=== PATIENT | female | born 2005 | race Caucasian/White ===

== ENCOUNTER 2023-11-02 05:07 | Observation (INO) ==
[2023-11-02 06:16] LABS: Appearance Urine Cloudy (Clear); Bacteria Urine Automated 1+ (Negative); Bilirubin Urine Negative (Negative); Blood Urine 2+ (Negative); Color Urine Dark Yellow; Epithelial Cell Urine Auto >30 /lpf (0-5); Glucose Urine UA Negative (Negative); Ketones Urine Trace (Negative); Leukocyte Esterase Urine 1+ (Negative); Nitrite Urine Negative (Negative); Protein Urine Trace (Negative); RBC Urine Automated 0-4 /hpf (0-4); Specific Gravity Urine 1.022 (1.000-1.030); Urobilinogen Urine Negative (Negative); WBC Urine Automated >30 /hpf (0-5)
[2023-11-02 06:20] LABS: Basophils # (auto) 0.07 K/uL (0.00-0.20); Basophils % (auto) 0.5 %; Eosinophils # (auto) 0.04 K/uL (0.00-0.50); Eosinophils % (auto) 0.3 %; Hematocrit (blood only) 36.7 % (37.0-47.0); Hemoglobin 11.7 g/dl (12.0-16.0); Immature Granulocytes # (auto) 0.07 K/uL (0.01-0.20); Immature Granulocytes % (auto) 0.5 %; Lymphocytes # (auto) 1.45 K/uL (1.20-3.40); Lymphocytes % (auto) 9.3 %; Mean Corpuscular Hemoglobin 27.9 pg (25.0-34.0); Mean Corpuscular Hgb Conc 31.9 g/dL (32.0-36.0); Mean Corpuscular Volume 87.4 fL (80.0-100.0); Monocytes # (auto) 1.01 K/uL (0.11-0.59); Monocytes % (auto) 6.5 %; Neutrophils # (auto) 12.89 K/uL (1.40-6.50); Neutrophils % (auto) 82.9 %; Platelet Count 387 K/uL (130-400); RDW Coefficient of Variation 14.4 % (11.5-14.5); White Blood Count 15.53 K/ul (4.8-10.8)
[2023-11-02 06:35] LABS: Albumin Globulin Ratio 1.3 (0.9-2); Albumin Level 4.3 gm/dl (3.4-5.0); Bilirubin,Total 0.7 mg/dl (0.2-1.0); Calcium 9.4 mg/dl (8.6-10.3); Creatinine Clr Calc Pharmacy 121.5 ml/min; Est GFR (African American) 147.7 ml/min; Est GFR (Non-African American) 127.4 ml/min; Globulin 3.4 gm/dl (2.5-4.0); Potassium 3.3 mmol/L (3.5-5.1); Total Protein 7.7 gm/dl (6.0-8.3)
--- NOTE | 2023-11-02 06:42 | Emergency Department Note ---
Impression & Plan Left pyosalpinx, UTI (urinary tract infection) The patient will be admitted to the [facility]END[facility] service ED Provider Note NAME: LEXIE HO AGE: 17 SEX: Female INFORMANT: Patient ED PROVIDER(S): Jahaira Oneill DO CHIEF COMPLAINT: Abdominal pain PLAN: Disposition: Admit to the [facility] ATTENDANT service MEDICAL DECISION MAKING: This is a 17-year-old female patient presents to the emergency department with suprapubic and left lower quadrant abdominal pain. Patient has been told in the past that she has inflammation to her left fallopian tube and is concerned there may be an issue with it now. Patient has had a previous right-sided ectopic with removal of the right fallopian tube. Patient continues to have unprotected sex although urine test is negative at this time. She went for pelvic ultrasound which shows evidence of hydrosalpinx versus pyosalpinx. On pelvic exam, the patient has exquisite/severe cervical motion tenderness and left adnexal tenderness. Cultures were obtained of some thick yellow/brown vaginal discharge. Patient was given a dose of IV Unasyn after blood cultures were obtained. Laboratory studies reveal significant leukocytosis with a white blood cell count of 15.5. She is afebrile at this time. Urinalysis reveals 2+ blood, 1+ leukocyte esterase and greater than 30 white blood cells. I have discussed the case with Dr. 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 Vital Signs: reviewed and remarkable for tachycardia Additional History obtained from: Mother is at the bedside Chronic Medical/Social Conditions affecting care: None Prior/ Outside/ External records reviewed: Multiple previous records from the [facility] system including operative note from her ectopic 02/09/2023. Differential Diagnosis: Cystitis, pyelonephritis, tubo-ovarian abscess, ovarian torsion, ovarian cyst rupture, ectopic , pelvic abscess Diagnostics, independently interpreted by me: Imaging studies: Pelvic ultrasound: As per radiologist report HPI: 17 year old Female arrives for evaluation of abdominal pain. Patient developed worsening suprapubic and left lower quadrant abdominal pain throughout the day yesterday and into last evening. She was unable to sleep because of the pain. Patient has a history of a right-sided ectopic with removal of the tube and had subsequent visits to [place] emergency department where she was told that she had inflammation of the left fallopian tube. She is scheduled for pelvic MRI on 11/17/2023 to evaluate the remaining fallopian tube, ovaries and uterus. This follow-up is scheduled in [place] with gynecology PAST MEDICAL HISTORY: Ruptured ectopic , PAST SURGICAL HISTORY: Removal of the right fallopian tube status post ectopic , SOCIAL HISTORY: See Below, HOME MEDICATIONS: See list ALLERGIES: See list VITALS: See Below PHYSICAL EXAMINATION: HEENT: Head - normocephalic and atraumatic. Pupils are equal, round, and reactive to light. Extraocular eye muscles are intact, and sclera are anicteric. Nose - moist nasal mucosa without discharge. Mouth - moist buccal mucosa. Oropharynx is nonerythematous and there is no tonsillar exudate or edema noted. Neck: Supple; no cervical lymphadenopathy or nuchal rigidity. Heart: Regular rate and rhythm. There is a normal S1 and S2 with no murmurs, clicks, or gallops appreciated. Lungs: Clear to auscultation bilaterally with no wheezes, rales, or rhonchi. Abdomen: Soft, mildly distended with moderate tenderness to palpation in the left lower quadrant of the abdomen, with good bowel sounds. There are no palpable pulsatile masses or hepatosplenomegaly. There is no guarding, rigidity, or rebound noted. Extremities: No evidence of cyanosis, clubbing, or edema. There are easily palpable peripheral pulses. Skin: warm and dry with good turgor and no rashes. Pelvic: Speculum examination, the cervix appeared normal although there was some thick yellow/brown vaginal discharge noted. There was no odor appreciated. Cultures were obtained. On bimanual examination, the patient had severe/exquisite cervical motion tenderness and left adnexal tenderness. Emergency department course: The patient was evaluated in room A-4. A complete history and physical was performed. An IV lock was initiated and labs were drawn as above. Urine specimen was obtained. test was negative. The patient went for ultrasound of the pelvis. I reviewed the results of the labs and ultrasound with the patient and the mother. Patient had a pelvic exam performed as described above. Patient was given a liter of normal saline wide open for some episodic hypotension and was given 3 g of IV Unasyn for what appears to be pyosalpinx. I discussed the case with the [facility] deputy county clerk on-call and they will evaluate for further inpatient care. Past Med/Surg History Social History Smoking Status: Current every day smoker Tobacco Type: Cigarettes Preferred Language: Armenian Feels Safe at Home: Yes Results & Data (ED) Vital Signs Vital Signs - 24 hr 11/02/23 05:10 11/02/23 07:14 Temperature 36.4 C L Temperature Source Temporal Artery Scan Pulse Rate 108 H Pulse Rate [Finger] 86 Pulse Rhythm [Finger] Regular Pulse Strength [Finger] Normal Respiratory Rate 16 18 Respiratory Effort / Characteristics Non-Labored Spontaneous Respiratory Depth Normal Respiratory Pattern Regular Blood Pressure 110/66 Blood Pressure [Right Arm] 90/48 L Blood Pressure Mean 80 Blood Pressure Mean [Right Arm] 62 Blood Pressure Position [Right Arm] Lying Pulse Oximetry 97 99 Oxygen Delivery Method Room Air Room Air Sepsis Recent Fever Within 48 Hours No Sepsis New/Unexplained Change in Mental Status No Sepsis Action Taken by Nursing No Action Required Laboratory Data 11/02/23 05:27 11/02/23 05:27 Lab Results 11/02/23 11/02/23 11/02/23 Range/Units 05:27 05:55 05:57 WBC 15.53 H (4.8-10.8) K/ul RBC 4.20 (4.20-5.40) M/uL Hgb 11.7 L (12.0-16.0) g/dl Hct 36.7 L (37.0-47.0) % MCV 87.4 (80.0-100.0) fL MCH 27.9 (25.0-34.0) pg MCHC 31.9 L (32.0-36.0) g/dL RDW Std Deviation 46.0 (36.4-46.3) fL RDW Coeff of Trina 14.4 (11.5-14.5) % Plt Count 387 (130-400) K/uL MPV 9.0 L (9.4-12.4) fL Immature Gran % (Auto) 0.5 % Neut % (Auto) 82.9 % Lymph % (Auto) 9.3 % [place] % (Auto) 6.5 % Eos % (Auto) 0.3 % Baso % (Auto) 0.5 % Neut # (Auto) 12.89 H (1.40-6.50) K/uL Lymph # (Auto) 1.45 (1.20-3.40) K/uL [place] # (Auto) 1.01 H (0.11-0.59) K/uL Eos # (Auto) 0.04 (0.00-0.50) K/uL Baso # (Auto) 0.07 (0.00-0.20) K/uL Immature Gran # (Auto) 0.07 (0.01-0.20) K/uL Sodium 138 (136-145) mmol/L Potassium 3.3 L (3.5-5.1) mmol/L Chloride 105 (98-107) mmol/L Carbon Dioxide 26 (21-32) mmol/L Anion Gap 7 (3-11) BUN 6 (6-23) mg/dl Creatinine 0.67 (0.6-1.2) mg/dl Est Cr Clr Drug Dosing 121.5 ml/min Est GFR ( Amer) 147.7 ml/min Est GFR (Non-Af Amer) 127.4 ml/min BUN/Creatinine Ratio 9.0 L (10-20) Glucose 156 H (70-99(Fasting)) mg/dl Calcium 9.4 (8.6-10.3) mg/dl Total Bilirubin 0.7 (0.2-1.0) mg/dl AST 14 (13-39) U/L ALT 9 (7-52) U/L Alkaline Phosphatase 292 H (34-104) U/L Total Protein 7.7 (6.0-8.3) gm/dl Albumin 4.3 (3.4-5.0) gm/dl Globulin 3.4 (2.5-4.0) gm/dl Albumin/Globulin Ratio 1.3 (0.9-2) Lipase 4 L (11-82) U/L Urine Color Dark Yellow Urine Appearance Cloudy A (Clear) Urine pH 6.0 (4.5-7.5) Ur Specific [place] 1.022 (1.000-1.030) Urine Protein Trace H (Negative) Urine Glucose (UA) Negative (Negative) Urine Ketones Trace H (Negative) Urine Blood 2+ H (Negative) Urine Nitrite Negative (Negative) Urine Bilirubin Negative (Negative) Urine Urobilinogen Negative (Negative) Ur Leukocyte Esterase 1+ H (Negative) Urine WBC (Auto) >30 H (0-5) /hpf Urine RBC (Auto) 0-4 (0-4) /hpf U Hyaline Cast (Auto) 5-10 H (0-5) /lpf U Epithel Cells (Auto) >30 H (0-5) /lpf Urine Bacteria (Auto) 1+ H (Negative) POC Ur Test NEG (NEG) Imaging Data Radiologist's Impression: Pelvis Ultrasound 11/02/23 05:48 ULTRASOUND OF THE PELVIS CLINICAL HISTORY: Pelvic pain. COMPARISON STUDY: No priors. TECHNIQUE: Real-time, grayscale, and color flow sonography of the pelvis is performed both transabdominally and endovaginally. Images are reviewed in the transverse and longitudinal planes. The endovaginal examination was performed for better assessment of the ovaries and adnexa. FINDINGS: Uterus: The uterus is normal in size and echotexture, measuring 6.7 x 3.4 x 4.6 cm. Endometrium: The endometrium is normal in appearance, and the endometrial stripe is normal in thickness measuring up to 0.5 cm. Ovaries: The ovaries are normal in size and morphology. The right ovary measures 3.4 x 1.9 x 3.6 cm and the left ovary measures 4.9 x 5.0 x 4.7 cm. A 2.6 cm complex follicle seen on the left. Additional smaller follicles are seen bilaterally. Normal Doppler waveforms are shown within both ovaries. Pelvis: There is a small volume of complex free fluid in the cul-de-sac. There is a complex tubular structure identified closely approximating the left ovary. This contains fluid/fluid levels and appears hyperemic on color imaging. IMPRESSION: 1. Normal sonographic appearance of the uterus and right ovary. 2. There is a complex tubular structure identified closely approximating the left ovary. This contains fluid/fluid levels and appears hyperemic on color imaging. Hydrosalpinx/pyosalpinx is favored. No drainable fluid collection is clearly seen to indicate abscess. 3. There is a small volume of complex free fluid in the cul-de-sac. 4. There is no sonographic evidence of ectopic . Correlate with serum beta hCG levels. ACT 112: Negative or not required by law. Electronically signed by: Roger Dc M.D. 11/02/2023 7:24 AM Transvaginal US 11/02/23 05:49 ULTRASOUND OF THE PELVIS CLINICAL HISTORY: Pelvic pain. COMPARISON STUDY: No priors. TECHNIQUE: Real-time, grayscale, and color flow sonography of the pelvis is performed both transabdominally and endovaginally. Images are reviewed in the transverse and longitudinal planes. The endovaginal examination was performed for better assessment of the ovaries and adnexa. FINDINGS: Uterus: The uterus is normal in size and echotexture, measuring 6.7 x 3.4 x 4.6 cm. Endometrium: The endometrium is normal in appearance, and the endometrial stripe is normal in thickness measuring up to 0.5 cm. Ovaries: The ovaries are normal in size and morphology. The right ovary measures 3.4 x 1.9 x 3.6 cm and the left ovary measures 4.9 x 5.0 x 4.7 cm. A 2.6 cm complex follicle seen on the left. Additional smaller follicles are seen bilaterally. Normal Doppler waveforms are shown within both ovaries. Pelvis: There is a small volume of complex free fluid in the cul-de-sac. There is a complex tubular structure identified closely approximating the left ovary. This contains fluid/fluid levels and appears hyperemic on color imaging. IMPRESSION: 1. Normal sonographic appearance of the uterus and right ovary. 2. There is a complex tubular structure identified closely approximating the left ovary. This contains fluid/fluid levels and appears hyperemic on color imaging. Hydrosalpinx/pyosalpinx is favored. No drainable fluid collection is clearly seen to indicate abscess. 3. There is a small volume of complex free fluid in the cul-de-sac. 4. There is no sonographic evidence of ectopic . Correlate with serum beta hCG levels. ACT 112: Negative or not required by law. Electronically signed by: Roger Dc M.D. 11/02/2023 7:24 AM Discharge Plan Visit Data Chief Complaint: Abdominal Pain Stated Complaint: LEFT FLANK PAIN, TOLD FALLOPIAN TUBE INFLAMMED ED Provider: Jahaira Oneill Discharge Problem: Left pyosalpinx, UTI (urinary tract infection) Forms Stand Alone Forms: [facility] Referrals Referrals: Iman Glasgow PA-C [Primary Care Provider] - Discharge Problem: UTI (urinary tract infection) Qualifiers: Urinary tract infection type: site unspecified Hematuria presence: with hematuria Qualified Code(s): N39.0 - Urinary tract infection, site not specified ; R31.9 - Hematuria, unspecified
--- NOTE | 2023-11-02 07:26 | Ultrasound Report ---
ULTRASOUND OF THE PELVIS CLINICAL HISTORY: Pelvic pain. COMPARISON STUDY: No priors. TECHNIQUE: Real-time, grayscale, and color flow sonography of the pelvis is performed both transabdom inally and endovaginally. Images are reviewed in the transverse and longitudinal planes. The endovagi nal examination was performed for better assessment of the ovaries and adnexa. FINDINGS: Uterus: The uterus is normal in size and echotexture, measuring 6.7 x 3.4 x 4.6 cm. Endometrium: The endometrium is normal in appearance, and the endometrial stripe is normal in thickne ss measuring up to 0.5 cm. Ovaries: The ovaries are normal in size and morphology. The right ovary measures 3.4 x 1.9 x 3.6 cm a nd the left ovary measures 4.9 x 5.0 x 4.7 cm. A 2.6 cm complex follicle seen on the left. Additional smaller follicles are seen bilaterally. Normal Doppler waveforms are shown within both ovaries. Pelvis: There is a small volume of complex free fluid in the cul-de-sac. There is a complex tubular s tructure identified closely approximating the left ovary. This contains fluid/fluid levels and appear s hyperemic on color imaging. IMPRESSION: 1. Normal sonographic appearance of the uterus and right ovary. 2. There is a complex tubular structure identified closely approximating the left ovary. This contain s fluid/fluid levels and appears hyperemic on color imaging. Hydrosalpinx/pyosalpinx is favored. No d rainable fluid collection is clearly seen to indicate abscess. 3. There is a small volume of complex free fluid in the cul-de-sac. 4. There is no sonographic evidence of ectopic . Correlate with serum beta hCG levels. ACT 112: Negative or not required by law. Electronically signed by: Roger Dc M.D. 11/02/2023 7:24 AM
[2023-11-02] MEDS ORDERED: SODIUM CHLORIDE 0.9% 1,000 ML IV ONE (07:48)
[2023-11-02] MEDS ORDERED: AMPICILLIN/SULBACTAM SOD 3,000 MG in SODIUM CHLOR 0.9% MINI-B 100 ML IV STA (07:48)
[2023-11-02] MEDS ORDERED: ONDANSETRON INJ 2 MG/ML 2 ML VIAL IV PRN (13:06)
[2023-11-02] MEDS ORDERED: ONDANSETRON 4 MG OD TAB PO PRN (13:06)
[2023-11-02] MEDS ORDERED: ACETAMINOPHEN 325 MG TAB PO PRN (13:06)
[2023-11-02 13:19] LABS: Trichomonas vag RNA GenitalFem Not Detected (NotDetected)
[2023-11-02 13:24] LABS: GC (Neis gonorrhoeae) RNA Not Detected (NotDetected)
[2023-11-02] MEDS: LACTATED RINGER'S 1,000 ML IV SCH ×2 (13:37→22:08)
[2023-11-02] MEDS: cefTRIAXone SODIUM 1,000 MG in DEXTROSE 5 % MINI-B 50 ML IV SCH (13:45)
--- NOTE | 2023-11-02 14:02 | History & Physical Report ---
Date of Service November 02, 2023 Assessment & Plan (1) UTI (urinary tract infection): Plan IV antibiotics Admission and Anticipated Discharge Date Admission Date: November 02, 2023 History of Present Illness Chief Complaint: left sided abdominal pain Primary Care Provider: Iman EnriquePatricia Myah 17 F [id number] presents to ER early this AM with left sided abdominal pain. She was seen recently by PCP and had f/u appointment in [place] with supervisor mixing for hydrosalpinx and continued pain. Pelvic ultrasound verified left sided hydrosalpinx. Allergies Allergy/AdvReac Type Severity Reaction Status Date / Time adhesive Allergy Mild Hives Verified 11/02/23 08:15 Home Medications Medication Instructions Recorded Confirmed Type duloxetine 60 mg capsule,delayed 60 mg PO DAILY 11/02/23 11/02/23 History release (Cymbalta) ondansetron 4 mg disintegrating 4 mg PO Q8H PRN Nausea And Vomiting 11/02/23 11/02/23 History tablet Patient History Social History Smoking Status: Current every day smoker Tobacco Type: Cigarettes and E-cigarettes / Vaping Second Hand Exposure: Yes; Do You Dip or Chew Tobacco: No; Tobacco Cessation Education Requested by Patient: No Hx Alcohol Use: No Hx Substance Use: Yes Last Used Substance Other:: 2 days ago Preferred Language: Qatari Communication Ability: Effective Counter Maker Required: No Beliefs That Will Affect Care: None Current Living Situation: Family Current Living Situation Comment: Lives with parents, sister and her boyfriend Other Information That Helps Us Care for You: No Feels Safe at Home: Yes Safety Concerns: Feels Safe At This Time Assistive Devices: None OB History right ectopic with salpingectomy 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 Review of Systems All systems reviewed & are unremarkable except as noted in HPI & below Physical Exam Constitutional: WD/WN, vitals as above Eyes: PERRL, conjunctivae normal, anicteric sclerae Respiratory: normal respiratory effort, lungs clear to auscultation Cardiovascular: RRR, no murmur, no edema Gastrointestinal (Abdomen): normal bowel sounds, soft, nontender, no hepatosplenomegaly Inspection/Auscultation: abdomen normal to inspection no rebound, guarding or masses noted Musculoskeletal: Extremities: extremities normal to inspection Skin: no rashes, warm and dry Neurologic: patellar DTR's 2+ bilat, sensation intact Psychiatric: A+Ox3, euthymic affect Results & Data Vital Signs (Past 12 Hours) Vital Signs Temp Pulse Pulse Resp BP BP Pulse Ox 11/02/23 13:08 11/02/23 13:08 36.8 C 83 16 96/59 L 98 11/02/23 11:30 76 18 91/51 L 95 11/02/23 10:05 80 17 100/71 100 11/02/23 09:36 85 16 87/49 L 98 11/02/23 08:56 91 H 17 105/67 98 11/02/23 08:25 86 11/02/23 08:21 80 16 107/70 97 11/02/23 07:14 86 18 90/48 L 99 11/02/23 05:10 36.4 C L 108 H 16 110/66 97 O2 Del Method 11/02/23 13:08 Room Air 11/02/23 13:08 Room Air 11/02/23 11:30 Room Air 11/02/23 10:05 Room Air 11/02/23 09:36 Room Air 11/02/23 08:56 Room Air 11/02/23 08:25 11/02/23 08:21 Room Air 11/02/23 07:14 Room Air 11/02/23 05:10 Room Air Laboratory Results Laboratory Results - last 48 hr 11/02/23 11/02/23 11/02/23 05:27 05:55 05:57 WBC 15.53 H RBC 4.20 Hgb 11.7 L Hct 36.7 L MCV 87.4 MCH 27.9 MCHC 31.9 L RDW Std Deviation 46.0 RDW Coeff of Trina 14.4 Plt Count 387 MPV 9.0 L Immature Gran % (Auto) 0.5 Neut % (Auto) 82.9 Lymph % (Auto) 9.3 [place] % (Auto) 6.5 Eos % (Auto) 0.3 Baso % (Auto) 0.5 Neut # (Auto) 12.89 H Lymph # (Auto) 1.45 [place] # (Auto) 1.01 H Eos # (Auto) 0.04 Baso # (Auto) 0.07 Immature Gran # (Auto) 0.07 Sodium 138 Potassium 3.3 L Chloride 105 Carbon Dioxide 26 Anion Gap 7 BUN 6 Creatinine 0.67 Est Cr Clr Drug Dosing 121.5 Est GFR ( Amer) 147.7 Est GFR (Non-Af Amer) 127.4 BUN/Creatinine Ratio 9.0 L Glucose 156 H Calcium 9.4 Total Bilirubin 0.7 AST 14 ALT 9 Alkaline Phosphatase 292 H Total Protein 7.7 Albumin 4.3 Globulin 3.4 Albumin/Globulin Ratio 1.3 Lipase 4 L Urine Color Dark Yellow Urine Appearance Cloudy A Urine pH 6.0 Ur Specific [place] 1.022 Urine Protein Trace H Urine Glucose (UA) Negative Urine Ketones Trace H Urine Blood 2+ H Urine Nitrite Negative Urine Bilirubin Negative Urine Urobilinogen Negative Ur Leukocyte Esterase 1+ H Urine WBC (Auto) >30 H Urine RBC (Auto) 0-4 U Hyaline Cast (Auto) 5-10 H U Epithel Cells (Auto) >30 H Urine Bacteria (Auto) 1+ H POC Ur Test NEG C.trachomatis RNA N.gonorrhoeae RNA T.vaginalis (Amp Det) 11/02/23 07:42 WBC RBC Hgb Hct MCV MCH MCHC RDW Std Deviation RDW Coeff of Trina Plt Count MPV Immature Gran % (Auto) Neut % (Auto) Lymph % (Auto) [place] % (Auto) Eos % (Auto) Baso % (Auto) Neut # (Auto) Lymph # (Auto) [place] # (Auto) Eos # (Auto) Baso # (Auto) Immature Gran # (Auto) Sodium Potassium Chloride Carbon Dioxide Anion Gap BUN Creatinine Est Cr Clr Drug Dosing Est GFR ( Amer) Est GFR (Non-Af Amer) BUN/Creatinine Ratio Glucose Calcium Total Bilirubin AST ALT Alkaline Phosphatase Total Protein Albumin Globulin Albumin/Globulin Ratio Lipase Urine Color Urine Appearance Urine pH Ur Specific [place] Urine Protein Urine Glucose (UA) Urine Ketones Urine Blood Urine Nitrite Urine Bilirubin Urine Urobilinogen Ur Leukocyte Esterase Urine WBC (Auto) Urine RBC (Auto) U Hyaline Cast (Auto) U Epithel Cells (Auto) Urine Bacteria (Auto) POC Ur Test C.trachomatis RNA DETECTED A N.gonorrhoeae RNA Not Detected T.vaginalis (Amp Det) Not Detected Code Status & VTE Plan VTE Prophylaxis Plan VTE Prophylaxis will be ordered: No (1) UTI (urinary tract infection) Hematuria presence: with hematuria Urinary tract infection type: site unspecified Qualified Code(s): N39.0 - Urinary tract infection, site not specified; R31.9 - Hematuria, unspecified
--- OUTSIDE RECORDS SUMMARY | 2023-11-02 17:08 | External Medical Summary | Continuity of Care Document ---
Author Name MILDRED YAP PA-C Address [address] [place] [address] Phone [phone] Organization [facility] Address [address], [address] [place] [address] Phone [phone] Social History Type Date Description Comments Sex Unknown Cigarette Use 09/27/2023 Vaping Tobacco Use Reviewed: 09/27/23 Occasionally Smokes Ci garettes Smoking Status Reviewed: 09/27/23 Occasionally Smokes Cigarettes Tobacco Use Reviewed: 09/27/23 Never Smoked Cigars Tobacco Use Reviewed: 09/27/23 Never Smoked A Pipe Smokeless Tobacco 09/27/2023 Never Used Smokeless To bacco Allergies and adverse reactions Description No Known Drug Allergies Medications Active Medications SIG Qnty Indications Ordering Provider Date [id number] Caps DR Part 1 by mouth every day x 7 days, then start 60 mg capsule. 7caps F32.1 Casandra Brennan MD, PhD 09/21/2023 - 09/28/[id number] Part 1 by mouth every day. start in 1 week. 30caps F32.1 Casandra Brennan MD, PhD 09/21/[address] 1 by mouth every day 30 mins before breakfast for 8 weeks 60caps R11.0 Sarah Molina MD 08/21/2023 [id number] Tablets 1 tab by mouth up to three times a day as needed for pain with food Unknown 03/23/2023 Tylenol Extra [id number] Tablets 2 by mouth three times a day Unknown 03/22/2023 Ondansetron HCL4mg Tablets take 1 tablet by mouth every 8 hours as needed for nausea or vomiting. Unknown Sulfamethoxazole/Tr imethoprim [id number] Tablets take 1 tablet once a day per ER 7tabs Unknown Immunizations CPT Code Status Date Vaccine Lot # [id number] Given 07/20/2021 Bexsero [id number] 30889 Given 12/13/2019 Menactra/Menveo Meningococcal Conjugate Age 9 Months-55Yr [id number] 98388 Given 12/13/2019 Bexsero [id number] 80816 Given 08/19/2016 HPV Vaccine (Gardasil-9) [id number] 21353 Given 04/15/2016 HPV Vaccine (Gardasil-9) [id number] 32840 Given 01/27/2016 HPV Vaccine (Gardasil-9) [id number] 83553 Given 05/29/2015 Menactra/Menveo Meningococcal Conjugate Age 9 Months-55Yr [id number] 07380 Given 05/29/2015 Tdap (Tetanus, diphtheria & acel. pertussis) Adacel or Boostrix [id number] 51292 Given 01/11/2011 [facility] SCxR-Tfq-HLH [id number] 90977 Given 01/11/2011 [facility] Influenza 71911 Given 01/11/2011 Influenza Vac, Split 3 Yr s And Up [id number] 27830 Given 12/17/2009 [facility] Hep A Ped Inj [id number] [id number] 30788 Given 06/16/2009 [facility] Hep A Ped Inj [id number] 0AA 91317 Given 06/16/2009 [facility] Varivax [id number] 13533 Given 06/16/2009 [facility] NHxH-Xuf-UYF [id number] 94966 Given 07/03/2007 MMR Vaccine 52938 Given 10/06/2005 Pneumococcal Vaccine/Pneu movax 23 62459 Given 09/06/2005 Varicella (Chicken Pox) V accine 55751 Given 09/06/2005 MMR Vaccine 27754 Given 02/04/2005 Hib PRP-T Conjugate 4 Dos e Schedule 36938 Given 02/04/2005 Hep B Ped/Adolescent Vac 93701 Given 02/04/2005 DTaP (DT & Acel lular Pertussis) (Daptacel) Vac <7 Yr 23776 Given 12/07/2004 Poliovirus Vaccine, (IPV) 86354 Given 05/06/2004 DTaP (DT & Acel lular Pertussis) (Daptacel) Vac <7 Yr 71465 Given 05/06/2004 Pneumococcal Vaccine/Pneu movax 23 27463 Given 03/06/2004 Poliovirus Vaccine, (IPV) 19729 Given 03/06/2004 DTaP (DT & Acel lular Pertussis) (Daptacel) Vac <7 Yr 30127 Given 03/06/2004 Hib PRP-T Conjugate 4 Dos e Schedule 91896 Given 03/06/2004 Pneumococcal Vaccine/Pneu movax 23 35294 Given 03/06/2004 Hep B Ped/Adolescent Vac 88411 Given 01/12/2004 DTaP (DT & Acel lular Pertussis) (Daptacel) Vac <7 Yr 49308 Given 01/09/2004 Hep B Ped/Adolescent Vac 61805 Given 01/09/2004 Poliovirus Vaccine, (IPV) 84197 Given 01/09/2004 Hib PRP-T Conjugate 4 Dos e Schedule 56924 Given 2003 Hep B Ped/Adolescent Vac 62232 Refused 08/21/2023 Influenza Virus Vaccine, Quadrivalent, Split Virus, Im Use 6-35 81703 Refused 02/07/2023 Moderna Sars-Co v-2 (Cov-19) vacc,100 mcg/ 0.5 mL 12Y+EMR Doc Only 61474 Refused 07/02/2020 Influenza Virus Vaccine, Quadrivalent, Im Use 64395 Refused 09/19/2019 Influenza Virus Vaccine, Quadrivalent, Im Use 83620 Refused 08/17/2018 Influenza Virus Vaccine, Quadrivalent, Im Use 23771 Refused 01/27/2016 Influenza Virus Vaccine, Quadrivalent, Im Use Vital Signs Date Vital Result Comment 09/27/2023 11:08am BP Systolic 98 mmHg BP Diastolic 60 mmHg Body Temperature 98.2 F Heart Rate 72 /min Respiratory Rate 16 /min Weight 141.00 lb Weight 63.958 kg Weight Percentile 70th 09/21/2023 11:15am BP Systolic 108 mmHg BP Diastolic 70 mmHg Body Temperature 98.6 F Heart Rate 80 /min Respiratory Rate 16 /min Weight 139.50 lb Weight 63.277 kg Weight Percentile 68th Results Test Acquired Date Facility Test Result H/L Range N ote General Health Panel 09/08/2023 [facility] [address] [place], [place] [address] [phone] TSH 1.47 uIU/mL 0.50-6.00 Comp. Met 09/08/2023 [facility]. [address] [place], [place] [id number] [phone] Glucose 89 mg/dL 70-110 BUN 9 mg/dL 6-25 Creatinine 0.7 mg/dL 0.5-1.2 Sodium 142 mEq/L 135-145 Potassium 4.7 mEq/L 3.5-5.0 Chloride 108 mEq/L High 95-107 Co-2 26 mEq/L 24-31 Alk Phos 56 IU/L 43-122 Alt(SGPT) 7 IU/L Low 10-40 Ast(Sgot) 11 IU/L 3-42 T.Bilirubin 0.5 mg/dL 0.1-1.3 Calcium 9.5 mg/dL 8.5-10.6 Tot.Protein 7.1 g/dL 5.8-8.0 Albumin 4.6 g/dL 3.0-5.2 Globulin 2.5 g/dL 2.0-3.4 GFR 115 ML/MIN/1.73SQM >60 CBC W/Diff 09/08/2023 [facility]. [address] [place] [address] [phone] WBC 11.6 10^3/M3 High 3.1-9.2 RBC 4.16 10^6/M3 3.70-5.50 HGB 12.0 GR/DL 11.5-16.1 HCT 37.9 % 34.5-47.8 MCV 91.1 CUMICR 82.6-95.8 MCH 28.8 PICOGR 27.9-32.9 MCHC 31.6 % Low 32.6-35.4 RDW 17.3 % High 11.4-14.6 PLT 458 10^3/M3 High 140-350 MPV 7.6 CUMICR 7.0-10.6 %Neut 76.6 % High 40.0-75.0 %Lymph 16.2 % Low 17.0-45.0 %[place] 5.3 % 1.0-11.0 %Eos 0.5 % 0.0-6.0 %Baso 1.4 % 0.0-2.0 #Neut 8.9 10^3/M3 High 1.5-8.0 #Lymph 1.9 10^3/M3 0.8-3.2 #Yancey 0.6 10^3/M3 0.0-0.8 #Eos 0.1 10^3/m3 0.0-0.4 #Baso 0.2 10^3/m3 0.0-0.2 Urine Culture 09/08/2023 [facility]. [address] [place] [address] [phone] Urine Source URINE Urc Comment UROGENITAL CONTA <SEE NOTE> 1 Urinalysis 09/08/2023 [facility]. [address] [place], [place] [id number] [phone] Color COLORLESS Appearance CLOUDY Abnormal Clear Spec.Grav. 1.017 1.005-1.025 Leukocytes NEGATIVE Negative Nitrite NEGATIVE Negative PH 7.5 6.0-7.5 Protein NEGATIVE Negative Urine Glucose NEGATIVE Negative Ketone NEGATIVE Negative Urobilinogen NORMAL E.U./DL Normal Bilirubin NEGATIVE Negative Blood NEGATIVE Negative WBC-U 3-5 /HPF 0-5/HPF RBC-U 0-2 /HPF 0-5/HPF Bacteria TRACE None Seen Squamous 3-5 /HPF 0-5/HPF Order 09/08/[address] [id number] [phone] Zio - monitor technician extended 8 days to 15 days <pending> Laboratory test finding 03/30/2023 [facility] [address] [place], [place] [address] [phone] BhCG 5 mIU/ML 0-5 2 CBC W/Diff 03/30/2023 [facility] [address] [place], [place] [address] [phone] WBC 9.8 10^3/M3 High 3.1-9 .2 RBC 3.91 10^6/M3 3.70-5.50 HGB 11.6 GR/DL 11.5-16.1 HCT 36.0 % 34.5-47.8 MCV 92.1 CUMICR 82.6-95.8 MCH 29.6 PICOGR 27.9-32.9 MCHC 32.1 % Low 32.6-35.4 RDW 14.8 % High 11.4-14.6 PLT 567 10^3/M3 High 140-350 MPV 6.9 CUMICR Low 7.0-10.6 %Neut 65.4 % 40.0-75.0 %Lymph 25.8 % 17.0-45.0 %[place] 7.1 % 1.0-11.0 %Eos 0.6 % 0.0-6.0 %Baso 1.1 % 0.0-2.0 #Neut 6.4 10^3/M3 1.5-8.0 #Lymph 2.5 10^3/M3 0.8-3.2 #Yancey 0.7 10^3/M3 0.0-0.8 #Eos 0.1 10^3/m3 0.0-0.4 #Baso 0.1 10^3/m3 0.0-0.2 Iron Panel(Medcom) 03/30/2023 [facility]. [address] [place], [place] [address] [phone] Iron 39 g /dL 25-140 % Saturation 11 % Low 30-35 Tibc 03/30/2023 [facility]. [address] [place] [address] [phone] Tibc 370 g /dL 260-400 Transferrin 264 mg/dL 200-400 Laboratory test finding 03/30/2023 [facility]. [address] [place], [place] [address] [phone] Ferritin 14.50 ng/mL 6.00-115.0 1 UROGENITAL CONTAMINA TION 2 THE LEVELS OF HCG FO UND DURING NORMAL PREGNACY HAVE BEEN WELL DOCUMENTED AND ARE PRESENT IN THE FOLLOWING TABLE. THE PRODUCTION OF HCG IS EXTREMELY RAPID FOLLOWING CONCEPTION AND IS VARIABLE AMONG INDIVIDUALS. A NEGATIVE RESULT DOES NOT RULE OUT . A PATIENT WITH A NEGATIVE OR INCONCLUSIVE VALUE SHOULD BE TESTED AGAIN IN TWO DAYS BECAUSE HCG VALUES IN A NORMAL PREGNACY DOUBLE EVERY 48 HOURS. ------ GESTATIONAL AGE EXPECTED VALUE GESTATIONAL AGE EXPECTED VALUE IN WEEKS (mIU/mL) IN WEEKS (mIU/mL) 0.2-1 5-50 4-5 [id number] 1-2 50-500 5-6 [id number] 2-3 100-5000 6-8 [id number] 3-4 500-73927 8-12 [id number] Procedures Date Code Description Status 09/08/2023 90215 External ECG Rec>7D<15D Robel rding Completed 09/08/2023 23069 Venipuncture Routine Complet ed 08/21/2023 G9919 SCRN ND Pos ND Prov Of Rec C ompleted 03/30/2023 91630 Venipuncture Routine Complet ed 03/30/2023 1111F D/C Medications Reconciled W/Current Medications In Outpt MR Completed Medical Devices Description No Information Available Encounters Type Date Location Provider Dx Diagnosis Office Visit 09/27/2023 11:00a Fitz Yap PA-C F32.1 Major depressive disorder, single episode, moderate F41.9 Anxiety disorder, un specified R10.11 Right upper quadrant pain 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, GB & bile duct N83.8 Oth noninflammatory disord of ovary, fallop and broad ligmt Office Visit 09/21/2023 11:00a Fitz Elizabeth PA-C F32.1 Major depressive disorder, single episode, moderate F41.9 Anxiety disorder, un specified Office Visit 09/08/2023 3:00p Fitz Molina MD R31.9 Hematuria, unspecified R30.0 Dysuria R55 Syncope and collapse Office Visit 08/21/2023 3:30p Fitz Molina MD R11.0 Nausea N83.209 Unspecified ovarian cyst, unspecified side Office Visit 03/30/2023 3:30p Fitz medina PA-C N10 Acute pyelonephritis O00.90 Unspecified ectopic without intrauterine D64.9 Anemia, unspecified I95.1 Orthostatic hypotens ion Assessments Date Code Description Provider 09/27/2023 F32.1 Major depressive disorder, single episode, moderate Mildred Yap, VIVEK 09/27/2023 F41.9 Anxiety disorder, unspecifie d Mildred Yap, VIVEK 09/27/2023 R10.11 Right upper quadrant pain Me ancelmo Yap, VIVEK 09/27/2023 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, gallbladder and bile ducts Mildred VIVEK Yap 09/27/2023 N83.8 Other noninflamm atory disorders of ovary, fallopian tube and broad ligament Mildred VIVEK Yap 09/21/2023 F32.1 Major depressive disorder, single episode, moderate Mildred Merlosr, VIVEK 09/21/2023 F41.9 Anxiety disorder, unspecifie d Mildred Yap, VIVEK 09/08/2023 R31.9 Blood in urine Sarah stanford MD 09/08/2023 R30.0 Dysuria Sarah merlos MD 09/08/2023 R55 Syncope Sarah merlos MD 08/21/2023 R11.0 Nausea without vomiting Aubrey Molina MD 08/21/2023 N83.209 Unspecified ovarian cyst, un specified side Sarah Molina MD 03/30/2023 N10 Acute pyelonephritis Mildred Yap PA-C 03/30/2023 O00.90 Unspecified ecto pic without intrauterine Mildred Yap PA-C 03/30/2023 D64.9 Anemia, unspecified Mildred VIVEK Yap 03/30/2023 I95.1 Orthostatic hypotension Deb tyson Yap PA-C Plan of Treatment Future Appointment(s):* 10/11/2023 2:30 pm - Mildred Yap PA-C at [facility] * 10/07/2023 8:30 am - Lab - [facility] * 10/13/2023 2:00 pm - Sarah Molnia MD at [facility] * 11/27/2023 3:00 pm - Sarah Molina MD at [facility] 09/27/2023 - Mildred Yap PA-C* F32.1 Major depressive disorder, single episode, moderate* Follow up:* 2 weeks * F41.9 Anxiety disorder, unspecified * R10.11 Right upper quadrant pain* New Xrays:* NM Hepatobiliary Imaging W Pharmacologic, Ordered: 09/27/23 * Follow up:* HIDA Scan * D37.6 Neoplasm of uncertain behavior of liver, gallbladder and bile ducts* New Xrays:* MRI Liver W/O And W Contrast, Ordered: 09/27/23 * Follow up:* MRI liver * N83.8 Other noninflammatory disorders of ovary, fallopian tube and broad ligament* Follow up:* IT TECHNICAL SUPPORT SPECIALIST Functional Status Description No Information Available Mental Status Description No Information Available Referrals Description No Information Available
--- OUTSIDE RECORDS SUMMARY | 2023-11-02 17:09 | External Medical Summary | Continuity of Care Document ---
Author Name JESE MOLINA MD Address [address], [place] [address] Phone [phone] [facility] Address [address], [place] [address] Phone [phone] Social History Type Date Description Comments Sex Unknown Tobacco Use Reviewed: 09/08/23 Never Smoked Cigarette s Cigarette Use 09/08/2023 Vaping Tobacco Use Reviewed: 09/08/23 Occasionally Smokes Ci garettes Smoking Status Reviewed: 09/08/23 Occasionally Smokes Cigarettes Tobacco Use Reviewed: 09/08/23 Never Smoked Cigars Tobacco Use Reviewed: 09/08/23 Never Smoked A Pipe Smokeless Tobacco 09/08/2023 Never Used Smokeless To bacco Allergies and adverse reactions Description No Known Drug Allergies Medications Active Medications SIG Qnty Indications Ordering Provider Date Rwswqaiysf94rv Capsules DR 1 by mouth every day 30 mins before breakfast for 8 weeks 60caps R11.0 Jese Molina MD 08/21/2023 Lngyhyrvl902fb Tablets 1 tab by mouth up to three times a day as needed for pain with food Unknown 03/23/2023 Tylenol Extra Smzciwhv816vy Tablets 2 by mouth three times a day Unknown 03/22/2023 Metoclopramide HCL5mg Tablets take 1 tablet by mouth three times daily before meals X 10 days- given at [facility] Unknown History Medications Gogjucrp301yi Capsules 1 by mouth twice a day 20caps Unknown 03/23/2023 - Sulfamethoxazole/Trimethopr im [id number] Tablets 1 by mouth twice a day Unknown 03/22/2023 - 01/2023 Immunizations CPT Code Status Date Vaccine Lot # [id number] Given 07/20/2021 Bexsero [id number] 56375 Given 12/13/2019 Menactra/Menveo Meningococcal Conjugate Age 9 Months-55Yr [id number] 63803 Given 12/13/2019 Bexsero [id number] 86412 Given 08/19/2016 HPV Vaccine (Gardasil-9) [id number] 93578 Given 04/15/2016 HPV Vaccine (Gardasil-9) [id number] 19449 Given 01/27/2016 HPV Vaccine (Gardasil-9) [id number] 84890 Given 05/29/2015 Menactra/Menveo Meningococcal Conjugate Age 9 Months-55Yr [id number] 66714 Given 05/29/2015 Tdap (Tetanus, diphtheria & acel. pertussis) Adacel or Boostrix [id number] 73278 Given 01/11/2011 VFC [id number] 49846 Given 01/11/2011 VF Influenza 07118 Given 01/11/2011 Influenza Vac, Split 3 Yr s And Up [id number] 93718 Given 12/17/2009 VF Hep A Ped Inj [id number] [id number] 63964 Given 06/16/2009 VFC Hep A Ped Inj [id number] 51903 Given 06/16/2009 VF Varivax [id number] 49586 Given 06/16/2009 VF [id number] [id number] 92893 Given 07/03/2007 MMR Vaccine 52199 Given 10/06/2005 Pneumococcal Vaccine/Pneu movax 23 93415 Given 09/06/2005 Varicella (Chicken Pox) V accine 08174 Given 09/06/2005 MMR Vaccine 99229 Given 02/04/2005 Hib PRP-T Conjugate 4 Dos e Schedule 00450 Given 02/04/2005 Hep B Ped/Adolescent Vac 72123 Given 02/04/2005 DTaP (DT & Acel lular Pertussis) (Daptacel) Vac <7 Yr 56323 Given 12/07/2004 Poliovirus Vaccine, (IPV) 92124 Given 05/06/2004 DTaP (DT & Acel lular Pertussis) (Daptacel) Vac <7 Yr 55231 Given 05/06/2004 Pneumococcal Vaccine/Pneu movax 23 70336 Given 03/06/2004 Poliovirus Vaccine, (IPV) 82404 Given 03/06/2004 DTaP (DT & Acel lular Pertussis) (Daptacel) Vac <7 Yr 33171 Given 03/06/2004 Hib PRP-T Conjugate 4 Dos e Schedule 96892 Given 03/06/2004 Pneumococcal Vaccine/Pneu movax 23 09792 Given 03/06/2004 Hep B Ped/Adolescent Vac 60645 Given 01/12/2004 DTaP (DT & Acel lular Pertussis) (Daptacel) Vac <7 Yr 31453 Given 01/09/2004 Hep B Ped/Adolescent Vac 73747 Given 01/09/2004 Poliovirus Vaccine, (IPV) 85105 Given 01/09/2004 Hib PRP-T Conjugate 4 Dos e Schedule 40108 Given 2003 Hep B Ped/Adolescent Vac 08514 Refused 08/21/2023 Influenza Virus Vaccine, Quadrivalent, Split Virus, Im Use 6-35 52340 Refused 02/07/2023 Moderna Sars-Co v-2 (Cov-19) vacc,100 mcg/ 0.5 mL 12Y+EMR Doc Only 62955 Refused 07/02/2020 Influenza Virus Vaccine, Quadrivalent, Im Use 38969 Refused 09/19/2019 Influenza Virus Vaccine, Quadrivalent, Im Use 46948 Refused 08/17/2018 Influenza Virus Vaccine, Quadrivalent, Im Use 80866 Refused 01/27/2016 Influenza Virus Vaccine, Quadrivalent, Im Use Vital Signs Date Vital Result Comment 09/08/2023 2:52pm BP Systolic 120 mmHg BP Diastolic 60 mmHg Body Temperature 98.3 F Heart Rate 80 /min Respiratory Rate 18 /min Weight 142.12 lb Weight 64.468 kg Weight Percentile 72nd Height 63.75 inches 5'3.75" Height Percentile 41 % BMI (Body Mass Index) 24.6 kg/m2 Body Mass Index Percentile 76 % [place] Body Weight 115 lb 08/21/2023 3:41pm BP Systolic 120 mmHg BP Diastolic 70 mmHg Body Temperature 98.5 F Heart Rate 78 /min Respiratory Rate 16 /min Weight 145.12 lb Weight 65.829 kg Weight Percentile 75th Height 63.75 inches 5'3.75" Height Percentile 41 % BMI (Body Mass Index) 25.1 kg/m2 Body Mass Index Percentile 79 % [place] Body Weight 115 lb Results Test Acquired Date Facility Test Result H/L Range N ote General Health Panel 09/08/2023 [facility]. [address] [place] [address] [phone] TSH 1.47 uIU/mL 0.50-6.00 Comp. Met 09/08/2023 [facility]. [address] [place] [address] [phone] Glucose 89 mg/dL 70-110 BUN 9 mg/dL [...] GFR 115 ML/MIN/1.73SQM >60 CBC W/Diff 09/08/2023 [facility]. [address] [place] [address] [phone] WBC 11.6 10^3/M3 High 3.1-9.2 RBC 4.16 10^6/M3 3.70-5.50 HGB 12.0 GR/DL 11.5-16.1 HCT 37.9 % 34.5-47.8 MCV 91.1 CUMICR 82.6-95.8 MCH 28.8 PICOGR 27.9-32.9 MCHC 31.6 % Low 32.6-35.4 RDW 17.3 % High 11.4-14.6 PLT 458 10^3/M3 High 140-350 MPV 7.6 CUMICR 7.0-10.6 %Neut 76.6 % High 40.0-75.0 %Lymph 16.2 % Low 17.0-45.0 %[place] 5.3 % 1.0-11.0 %Eos 0.5 % 0.0-6.0 %Baso 1.4 % 0.0-2.0 #Neut 8.9 10^3/M3 High 1.5-8.0 #Lymph 1.9 10^3/M3 0.8-3.2 #[place] 0.6 10^3/M3 0.0-0.8 #Eos 0.1 10^3/m3 0.0-0.4 #Baso 0.2 10^3/m3 0.0-0.2 Urine Culture 09/08/2023 [facility]. [address] [place] [address] [phone] Urine Source URINE Urc Comment UROGENITAL CONTA <SEE NOTE> 1 Urinalysis 09/08/2023 [facility]. [address] [place] [address] [phone] Color COLORLESS Appearance CLOUDY Abnormal Clear Spec.Grav. 1.017 1.005-1.025 Leukocytes NEGATIVE Negative Nitrite NEGATIVE Negative PH 7.5 6.0-7.5 Protein NEGATIVE Negative Urine Glucose NEGATIVE Negative Ketone NEGATIVE Negative Urobilinogen NORMAL E.U./DL Normal Bilirubin NEGATIVE Negative Blood NEGATIVE Negative WBC-U 3-5 /HPF 0-5/HPF RBC-U 0-2 /HPF 0-5/HPF Bacteria TRACE None Seen Squamous 3-5 /HPF 0-5/HPF Order 09/08/[address] [address] [phone] Zio - monitoring tech extended 8 days to 15 days <pending> Laboratory test finding 03/30/2023 [facility]. [address] [place], [place] [address] [phone] BhCG 5 mIU/ML 0-5 2 CBC W/Diff 03/30/2023 [facility]. [address] [place], [place] [address] [phone] WBC 9.8 10^3/M3 High 3.1-9 .2 RBC 3.91 10^6/M3 3.70-5.50 HGB 11.6 GR/DL 11.5-16.1 HCT 36.0 % 34.5-47.8 MCV 92.1 CUMICR 82.6-95.8 MCH 29.6 PICOGR 27.9-32.9 MCHC 32.1 % Low 32.6-35.4 RDW 14.8 % High 11.4-14.6 PLT 567 10^3/M3 High 140-350 MPV 6.9 CUMICR Low 7.0-10.6 %Neut 65.4 % 40.0-75.0 %Lymph 25.8 % 17.0-45.0 %[place] 7.1 % 1.0-11.0 %Eos 0.6 % 0.0-6.0 %Baso 1.1 % 0.0-2.0 #Neut 6.4 10^3/M3 1.5-8.0 #Lymph 2.5 10^3/M3 0.8-3.2 #[place] 0.7 10^3/M3 0.0-0.8 #Eos 0.1 10^3/m3 0.0-0.4 #Baso 0.1 10^3/m3 0.0-0.2 Iron Panel(Medcom) 03/30/2023 [facility]. [address] [place], [place] [address] [phone] Iron 39 g /dL 25-140 % Saturation 11 % Low 30-35 Tibc 03/30/2023 [facility]. [address] [place], [place] [address] [phone] Tibc 370 g /dL 260-400 Transferrin 264 mg/dL 200-400 Laboratory test finding 03/30/2023 [facility]. [address] [place], [place] [address] [phone] Ferritin 14.50 ng/mL 6.00-115.0 1 UROGENITAL CONTAMINA [...] (mIU/mL) IN WEEKS (mIU/mL) 0.2-1 5-50 4-5 1000-19295 1-2 50-500 5-6 00891-120021 2-3 100-5000 6-8 [id number] 3-4 500-67275 8-12 [id number] Procedures Date Code Description Status 09/08/2023 10825 External ECG Rec>7D<15D Robel rding Completed 09/08/2023 28772 Venipuncture Routine Complet ed 08/21/2023 G9919 SCRN ND Pos ND Prov Of Rec C ompleted 03/30/2023 82762 Venipuncture Routine Complet ed 03/30/2023 1111F D/C Medications Reconciled W/Current Medications In Outpt MR Completed 03/23/2023 1111F D/C Medications Reconciled W/Current Medications In Outpt MR Completed Medical Devices Description No Information Available Encounters Type Date Location Provider Dx Diagnosis Office Visit 09/08/2023 3:00p Fitz Molina MD R31.9 Hematuria, unspecified R30.0 Dysuria R55 Syncope and collapse Office Visit 08/21/2023 3:30p Fitz Molina MD R11.0 Nausea N83.209 Unspecified ovarian cyst, unspecified side Office Visit 03/30/2023 3:30p [place] Mildred medina PA-C N10 Acute pyelonephritis O00.90 Unspecified ectopic without intrauterine D64.9 Anemia, unspecified I95.1 Orthostatic hypotens ion Assessments Date Code Description Provider 09/08/2023 R31.9 Blood in urine Jese stanford MD 09/08/2023 R30.0 Dysuria Jese merlos MD 09/08/2023 R55 Syncope Jese merlos MD 08/21/2023 R11.0 Nausea without vomiting Aubrey Molina MD 08/21/2023 N83.209 Unspecified ovarian cyst, un specified side Jese Molina MD 03/30/2023 N10 Acute pyelonephritis Mildred Lemon PA-C 03/30/2023 O00.90 Unspecified ecto pic without intrauterine Mildred Lemon PA-C 03/30/2023 D64.9 Anemia, unspecified Mildred Lemon PA-C 03/30/2023 I95.1 Orthostatic hypotension Deb tysonnavid Lemon PA-C Plan of Treatment Future Appointment(s):* 10/13/2023 2:00 pm - Jese Molina MD at [place] * 11/27/2023 3:00 pm - Jese Molina MD at [place] 09/08/2023 - Jese Molina MD* R31.9 Blood in urine* Comments:* Blood in urine could be UTI but UA negative. I suspect she may have passed a kidney stone given hersymptoms and quick resolution Will continue to monitor. Encouraged to continue to drink at least 2L fluid per day. No sodas * R30.0 Dysuria * R55 Syncope* Comments:* Given syncopal episodes will obtain basic labs and check her cardiac arrhythmia. Will have pt wear zio monitor for 2 weeks * Follow up:* Follow up 1 month Functional Status Description No Information Available Mental Status Description No Information Available Referrals Description No Information Available
--- OUTSIDE RECORDS SUMMARY | 2023-11-02 17:09 | External Medical Summary | Continuity of Care Document ---
Author Name MILDRED YAP PA-C Address [address] [place] [address] Phone [phone] Organization [place] Address [address], [address] [place] [address] Phone [phone] Social History Type Date Description Comments Sex Unknown Cigarette Use 09/21/2023 Vaping Tobacco Use Reviewed: 09/21/23 Occasionally Smokes Ci garettes Smoking Status Reviewed: 09/21/23 Occasionally Smokes Cigarettes Tobacco Use Reviewed: 09/21/23 Never Smoked Cigars Tobacco Use Reviewed: 09/21/23 Never Smoked A Pipe Smokeless Tobacco 09/21/2023 Never Used Smokeless To bacco Allergies and adverse reactions Description No Known Drug Allergies Medications Active Medications SIG Qnty Indications Ordering Provider Date [id number] Caps DR Part 1 by mouth every day x 7 days, then start 60 mg capsule. 7caps F32.1 Casandra Brennan MD, PhD 09/21/2023 - 09/28/[id number] Part 1 by mouth every day. start in 1 week. 30caps F32.1 Casandra Brennan MD, PhD 09/21/[address] 1 by mouth every day 30 mins before breakfast for 8 weeks 60caps R11.0 Saarh Molina MD 08/21/2023 Oazldaavl190oh Tablets 1 tab by mouth up to three times a day as needed for pain with food Unknown 03/23/2023 Tylenol Extra [id number] Tablets 2 by mouth three times a day Unknown 03/22/2023 Ondansetron HCL4mg Tablets take 1 tablet by mouth every 8 hours as needed for nausea or vomiting. Unknown History Medications [id number] Capsules 1 by mouth twice a day 20caps Unknown 03/23/2023 - Sulfamethoxazole/Trimethopr im [id number] Tablets 1 by mouth twice a day Unknown 03/22/2023 - 01/2023 Immunizations CPT Code Status Date Vaccine Lot # [id number] Given 07/20/2021 Bexsero [id number] 01357 Given 12/13/2019 Menactra/Menveo Meningococcal Conjugate Age 9 Months-55Yr [id number] 68865 Given 12/13/2019 Bexsero [id number] 48109 Given 08/19/2016 HPV Vaccine (Gardasil-9) [id number] 13950 Given 04/15/2016 HPV Vaccine (Gardasil-9) [id number] 59493 Given 01/27/2016 HPV Vaccine (Gardasil-9) [id number] 45746 Given 05/29/2015 Menactra/Menveo Meningococcal Conjugate Age 9 Months-55Yr [id number] 57788 Given 05/29/2015 Tdap (Tetanus, diphtheria & acel. pertussis) Adacel or Boostrix [id number] 76025 Given 01/11/2011 VFC [id number] 26560 Given 01/11/2011 VFC Influenza 75555 Given 01/11/2011 Influenza Vac, Split 3 Yr s And Up [id number] 57394 Given 12/17/2009 VFC Hep A Ped Inj [id number] 33653 Given 06/16/2009 VFC Hep A Ped Inj [id number] 12931 Given 06/16/2009 VFC Varivax [id number] 90167 Given 06/16/2009 VF NYgX-Tof-VWE [id number] 67388 Given 07/03/2007 MMR Vaccine 04680 Given 10/06/2005 Pneumococcal Vaccine/Pneu movax 23 05569 Given 09/06/2005 Varicella (Chicken Pox) V accine 55370 Given 09/06/2005 MMR Vaccine 74358 Given 02/04/2005 Hib PRP-T Conjugate 4 Dos e Schedule 90632 Given 02/04/2005 Hep B Ped/Adolescent Vac 28474 Given 02/04/2005 DTaP (DT & Acel lular Pertussis) (Daptacel) Vac <7 Yr 94290 Given 12/07/2004 Poliovirus Vaccine, (IPV) 73618 Given 05/06/2004 DTaP (DT & Acel lular Pertussis) (Daptacel) Vac <7 Yr 70342 Given 05/06/2004 Pneumococcal Vaccine/Pneu movax 23 74383 Given 03/06/2004 Poliovirus Vaccine, (IPV) 63926 Given 03/06/2004 DTaP (DT & Acel lular Pertussis) (Daptacel) Vac <7 Yr 83585 Given 03/06/2004 Hib PRP-T Conjugate 4 Dos e Schedule 39712 Given 03/06/2004 Pneumococcal Vaccine/Pneu movax 23 83947 Given 03/06/2004 Hep B Ped/Adolescent Vac 84353 Given 01/12/2004 DTaP (DT & Acel lular Pertussis) (Daptacel) Vac <7 Yr 60306 Given 01/09/2004 Hep B Ped/Adolescent Vac 82431 Given 01/09/2004 Poliovirus Vaccine, (IPV) 82675 Given 01/09/2004 Hib PRP-T Conjugate 4 Dos e Schedule 65453 Given 2003 Hep B Ped/Adolescent Vac 02982 Refused 08/21/2023 Influenza Virus Vaccine, Quadrivalent, Split Virus, Im Use 6-35 26275 Refused 02/07/2023 Moderna Sars-Co v-2 (Cov-19) vacc,100 mcg/ 0.5 mL 12Y+EMR Doc Only 92451 Refused 07/02/2020 Influenza Virus Vaccine, Quadrivalent, Im Use 77380 Refused 09/19/2019 Influenza Virus Vaccine, Quadrivalent, Im Use 69138 Refused 08/17/2018 Influenza Virus Vaccine, Quadrivalent, Im Use 85838 Refused 01/27/2016 Influenza Virus Vaccine, Quadrivalent, Im Use Vital Signs Date Vital Result Comment 09/21/2023 11:15am BP Systolic 108 mmHg BP Diastolic 70 mmHg Body Temperature 98.6 F Heart Rate 80 /min Respiratory Rate 16 /min Weight 139.50 lb Weight 63.277 kg Weight Percentile 68th 09/08/2023 2:52pm BP Systolic 120 mmHg BP Diastolic 60 mmHg Body Temperature 98.3 F Heart Rate 80 /min Respiratory Rate 18 /min Weight 142.12 lb Weight 64.468 kg Weight Percentile 72nd Height 63.75 inches 5'3.75" Height Percentile 41 % BMI (Body Mass Index) 24.6 kg/m2 Body Mass Index Percentile 76 % [place] Body Weight 115 lb Results Test Acquired Date Facility Test Result H/L Range N ote General Health Panel 09/08/2023 [facility] [address] [place], [place] [id number] [phone] TSH 1.47 uIU/mL 0.50-6.00 Comp. Met 09/08/2023 [facility] [address] [place], [place] [address] [phone] Glucose 89 mg/dL 70-110 BUN 9 mg/dL [...] GFR 115 ML/MIN/1.73SQM >60 CBC W/Diff 09/08/2023 [facility] [address] [place], [place] [address] [phone] WBC 11.6 10^3/M3 High 3.1-9.2 RBC 4.16 10^6/M3 3.70-5.50 HGB 12.0 GR/DL 11.5-16.1 HCT 37.9 % 34.5-47.8 MCV 91.1 CUMICR 82.6-95.8 MCH 28.8 PICOGR 27.9-32.9 MCHC 31.6 % Low 32.6-35.4 RDW 17.3 % High 11.4-14.6 PLT 458 10^3/M3 High 140-350 MPV 7.6 CUMICR 7.0-10.6 %Neut 76.6 % High 40.0-75.0 %Lymph 16.2 % Low 17.0-45.0 %[place] 5.3 % 1.0-11.0 %Eos 0.5 % 0.0-6.0 %Bas[place] 1.4 % 0.0-2.0 #Neut 8.9 10^3/M3 High 1.5-8.0 #Lymph 1.9 10^3/M3 0.8-3.2 #[place] 0.6 10^3/M3 0.0-0.8 #Eos 0.1 10^3/m3 0.0-0.4 #Baso 0.2 10^3/m3 0.0-0.2 Urine Culture 09/08/2023 [facility] [address] [place] [address] [phone] Urine Source URINE Urc Comment UROGENITAL CONTA <SEE NOTE> 1 Urinalysis 09/08/2023 [facility] [address] [place], [place] [id number] [phone] Color COLORLESS Appearance CLOUDY Abnormal Clear Spec.Grav. 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 [address] [place], [place] [address] [phone] BhCG 5 mIU/ML 0-5 2 CBC W/Diff 03/30/2023 [facility] [address] [place], [place] [id number] [phone] WBC 9.8 10^3/M3 High 3.1-9 .2 RBC 3.91 10^6/M3 3.70-5.50 HGB 11.6 GR/DL 11.5-16.1 HCT 36.0 % 34.5-47.8 MCV 92.1 CUMICR 82.6-95.8 MCH 29.6 PICOGR 27.9-32.9 MCHC 32.1 % Low 32.6-35.4 RDW 14.8 % High 11.4-14.6 PLT 567 10^3/M3 High 140-350 MPV 6.9 CUMICR Low 7.0-10.6 %Neut 65.4 % 40.0-75.0 %Lymph 25.8 % 17.0-45.0 %[place] 7.1 % 1.0-11.0 %Eos 0.6 % 0.0-6.0 %[place] 1.1 % 0.0-2.0 #Neut 6.4 10^3/M3 1.5-8.0 #Lymph 2.5 10^3/M3 0.8-3.2 #[place] 0.7 10^3/M3 0.0-0.8 #Eos 0.1 10^3/m3 0.0-0.4 #Baso 0.1 10^3/m3 0.0-0.2 Iron Panel(Medcom) 03/30/2023 [facility] [address] [place], [place] [address] [phone] Iron 39 g /dL 25-140 % Saturation 11 % Low 30-35 Tibc 03/30/2023 [facility] [address] [place], [place] [address] [phone] Tibc 370 g /dL 260-400 Transferrin 264 mg/dL 200-400 Laboratory test finding 03/30/2023 [facility] [address] [place], [place] [address] [phone] Ferritin 14.50 ng/mL 6.00-115.0 1 UROGENITAL CONTAMINA [...] (mIU/mL) IN WEEKS (mIU/mL) 0.2-1 5-50 4-5 1000-94540 1-2 50-500 5-6 26438-752536 2-3 100-5000 6-8 87349-797069 3-4 500-77993 8-12 24437-569107 Procedures Date Code Description Status 09/08/2023 52927 External ECG Rec>7D<15D Robel rding Completed 09/08/2023 63658 Venipuncture Routine [facility] ed 08/21/2023 G9919 SCRN ND Pos ND Prov Of Rec C ompleted 03/30/2023 42009 Venipuncture Routine [facility] ed 03/30/2023 1111F D/C Medications Reconciled W/Current Medications In Outpt MR Completed 03/23/2023 1111F D/C Medications Reconciled W/Current Medications In Outpt MR Completed Medical Devices Description No Information Available Encounters Type Date Location Provider Dx Diagnosis Office Visit 09/21/2023 11:00a Fitz Yap PA-C F32.1 Major depressive [...] hypotens ion Assessments Date Code Description Provider 09/21/2023 F32.1 Major depressive disorder, single episode, moderate Mildred Yap PA-C 09/21/2023 F41.9 Anxiety disorder, unspecifie d Mildred Yap PA-C 09/08/2023 R31.9 Blood in urine Sarah stanford MD 09/08/2023 R30.0 Dysuria Sarah merlos MD 09/08/2023 R55 Syncope Sarah merlos MD 08/21/2023 R11.0 Nausea without vomiting Aubrey Molina MD 08/21/2023 N83.209 Unspecified ovarian cyst, un specified side Sarah Molina MD 03/30/2023 N10 Acute pyelonephritis Mildred Yap PA-C 03/30/2023 O00.90 Unspecified ecto pic without intrauterine Mildred Yap PA-C 03/30/2023 D64.9 Anemia, unspecified Mildred Yap PA-C 03/30/2023 I95.1 Orthostatic hypotension Deb tyson Yap PA-C Plan of Treatment Future Appointment(s):* 10/07/2023 8:30 am - Lab - [facility] * 09/27/2023 11:00 am - Mildred Yap PA-C at [facility] * 10/13/2023 2:00 pm - Sarah Molina MD at [facility] * 11/27/2023 3:00 pm - Sarah Molina MD at [facility] 09/21/2023 - Mildred Yap PA-C* F32.1 Major depressive disorder, single episode, moderate* New Medication:* Cymbalta 30 mg - 1 by mouth every day x 7 days, then start 60 mg capsule. * Cymbalta 60 mg - 1 by mouth every day. start in 1 week. * Follow up:* 1 week * Recommendations:* [facility] : [facility]: [phone] [facility]: [phone] Kay Mitchell: [phone] * F41.9 Anxiety disorder, unspecified Functional Status Description No Information Available Mental Status Description No Information Available Referrals Description No Information Available
--- OUTSIDE RECORDS SUMMARY | 2023-11-02 17:09 | External Medical Summary | Continuity of Care Document ---
Author Name MILDRED YAP PA-C Address [address] [place] [address] Phone [phone] Organization [place] Address [address], [address] [place] [address] Phone [phone] Social History Type Date Description Comments Sex [...] Medications SIG Qnty Indications Ordering Provider Date Uhfxqwqj01je Caps DR Part 1 by mouth every day x 7 days, then start 60 mg capsule. 7caps F32.1 Casandra Brennan MD, PhD 09/21/2023 - 09/28/[address] Part 1 by mouth every day. start in 1 week. 30caps F32.1 Casandra Brennan MD, PhD 09/21/[address] 1 by mouth every day 30 mins before breakfast for 8 weeks 60caps R11.0 Sarah Molina MD 08/21/2023 Wbucxbpgy830vf Tablets 1 tab by mouth up to three times a day as needed for pain with food Unknown 03/23/2023 Tylenol Extra Jwwwhcec459pu Tablets 2 by mouth three times a day Unknown 03/22/2023 Ondansetron HCL4mg Tablets take 1 tablet by mouth every 8 hours as needed for nausea or vomiting. Unknown Sulfamethoxazole/Tr imethoprim UQ395-040dz Tablets take 1 tablet once a day per ER 7tabs Unknown Immunizations CPT Code Status Date Vaccine Lot # 85230 Given 07/20/2021 Bexsero [id number] 60718 Given 12/13/2019 Menactra/Menveo Meningococcal Conjugate Age 9 Months-55Yr [id number] 98190 Given 12/13/2019 Bexsero [id number] 46043 Given 08/19/2016 HPV Vaccine (Gardasil-9) [id number] 45582 Given 04/15/2016 HPV Vaccine (Gardasil-9) [id number] 11919 Given 01/27/2016 HPV Vaccine (Gardasil-9) [id number] 89396 Given 05/29/2015 Menactra/Menveo Meningococcal Conjugate Age 9 Months-55Yr [id number] 71832 Given 05/29/2015 Tdap (Tetanus, diphtheria & acel. pertussis) Adacel or Boostrix [id number] 11488 Given 01/11/2011 [facility] JJuU-Pet-EMO [id number] 59779 Given 01/11/2011 [facility] Influenza 04601 Given 01/11/2011 Influenza Vac, Split 3 Yr s And Up [id number] 48703 Given 12/17/2009 [facility] Hep A Ped Inj [id number] 70151 Given 06/16/2009 [facility] Hep A Ped Inj [id number] 62200 Given 06/16/2009 [facility] Varivax [id number] 64204 Given 06/16/2009 [facility] [id number] 10211 Given 07/03/2007 MMR Vaccine 76946 Given 10/06/2005 Pneumococcal Vaccine/Pneu movax 23 28740 Given 09/06/2005 Varicella (Chicken Pox) V accine 50927 Given 09/06/2005 MMR Vaccine 60057 Given 02/04/2005 Hib PRP-T Conjugate 4 Dos e Schedule 06233 Given 02/04/2005 Hep B Ped/Adolescent Vac 18523 Given 02/04/2005 DTaP (DT & Acel lular Pertussis) (Daptacel) Vac <7 Yr 69165 Given 12/07/2004 Poliovirus Vaccine, (IPV) 16666 Given 05/06/2004 DTaP (DT & Acel lular Pertussis) (Daptacel) Vac <7 Yr 15041 Given 05/06/2004 Pneumococcal Vaccine/Pneu movax 23 16254 Given 03/06/2004 Poliovirus Vaccine, (IPV) 56622 Given 03/06/2004 DTaP (DT & Acel lular Pertussis) (Daptacel) Vac <7 Yr 76560 Given 03/06/2004 Hib PRP-T Conjugate 4 Dos e Schedule 08376 Given 03/06/2004 Pneumococcal Vaccine/Pneu movax 23 48800 Given 03/06/2004 Hep B Ped/Adolescent Vac 48284 Given 01/12/2004 DTaP (DT & Acel lular Pertussis) (Daptacel) Vac <7 Yr 34214 Given 01/09/2004 Hep B Ped/Adolescent Vac 04242 Given 01/09/2004 Poliovirus Vaccine, (IPV) 62566 Given 01/09/2004 Hib PRP-T Conjugate 4 Dos e Schedule 69969 Given 2003 Hep B Ped/Adolescent Vac 64170 Refused 08/21/2023 Influenza Virus Vaccine, Quadrivalent, Split Virus, Im Use 6-35 67805 Refused 02/07/2023 Moderna Sars-Co v-2 (Cov-19) vacc,100 mcg/ 0.5 mL 12Y+EMR Doc Only 95575 Refused 07/02/2020 Influenza Virus Vaccine, Quadrivalent, Im Use 08196 Refused 09/19/2019 Influenza Virus Vaccine, Quadrivalent, Im Use 26866 Refused 08/17/2018 Influenza Virus Vaccine, Quadrivalent, Im Use 35774 Refused 01/27/2016 Influenza Virus Vaccine, Quadrivalent, Im [...] Range N ote General Health Panel 09/08/[address] [facility] [address] [place], [place] 7125669 [phone] TSH 1.47 uIU/mL 0.50-6.00 Comp. Met 09/08/[address] [facility] [address] [place], [place] [address]71 [phone] Glucose 89 mg/dL 70-110 BUN 9 mg/dL [...] GFR 115 ML/MIN/1.73SQM >60 CBC W/Diff 09/08/[address] [facility]. [address] [place] [address] [phone] WBC 11.6 10^3/M3 High 3.1-9.2 RBC 4.16 10^6/M3 3.70-5.50 HGB 12.0 GR/DL 11.5-16.1 HCT 37.9 % 34.5-47.8 MCV 91.1 CUMICR 82.6-95.8 MCH 28.8 PICOGR 27.9-32.9 MCHC 31.6 % Low 32.6-35.4 RDW 17.3 % High 11.4-14.6 PLT 458 10^3/M3 High 140-350 MPV 7.6 CUMICR 7.0-10.6 %Neut 76.6 % High 40.0-75.0 %Lymph 16.2 % Low 17.0-45.0 %[place] 5.3 % 1.0-11.0 %Eos 0.5 % 0.0-6.0 %Bas[place] 1.4 % 0.0-2.0 #Neut 8.9 10^3/M3 High 1.5-8.0 #Lymph 1.9 10^3/M3 0.8-3.2 #[place] 0.6 10^3/M3 0.0-0.8 #Eos 0.1 10^3/m3 0.0-0.4 #Baso 0.2 10^3/m3 0.0-0.2 Urine Culture 09/08/[address] [facility] [address] [place] [address] [phone] Urine Source URINE Urc Comment UROGENITAL CONTA <SEE NOTE> 1 Urinalysis 09/08/[address] [facility] [address] [place], [place] [address] [phone] Color COLORLESS Appearance CLOUDY Abnormal Clear Spec.Grav. 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 1 [place], [place] [address] [phone] BhCG 5 mIU/ML 0-5 2 CBC W/Diff 03/30/[address] [facility] [address] [place], [place] 164[address] [phone] WBC 9.8 10^3/M3 High 3.1-9 .2 RBC 3.91 10^6/M3 3.70-5.50 HGB 11.6 GR/DL 11.5-16.1 HCT 36.0 % 34.5-47.8 MCV 92.1 CUMICR 82.6-95.8 MCH 29.6 PICOGR 27.9-32.9 MCHC 32.1 % Low 32.6-35.4 RDW 14.8 % High 11.4-14.6 PLT 567 10^3/M3 High 140-350 MPV 6.9 CUMICR Low 7.0-10.6 %Neut 65.4 % 40.0-75.0 %Lymph 25.8 % 17.0-45.0 %[place] 7.1 % 1.0-11.0 %Eos 0.6 % 0.0-6.0 %[place] 1.1 % 0.0-2.0 #Neut 6.4 10^3/M3 1.5-8.0 #Lymph 2.5 10^3/M3 0.8-3.2 #[place] 0.7 10^3/M3 0.0-0.8 #Eos 0.1 10^3/m3 0.0-0.4 #Baso 0.1 10^3/m3 0.0-0.2 Iron Panel(Medcom) 03/30/2023 [facility]. [address] [place], [place] [address] [phone] Iron 39 g /dL 25-140 % Saturation 11 % Low 30-35 Tibc 03/30/[address] [facility] [address] [place] [address] [phone] Tibc 370 g /dL 260-400 Transferrin 264 mg/dL 200-400 Laboratory test finding 03/30/[address] [facility] 1 [place], [place] 1398[address] [phone] Ferritin 14.50 ng/mL 6.00-115.0 1 UROGENITAL CONTAMINA [...] (mIU/mL) IN WEEKS (mIU/mL) 0.2-1 5-50 4-5 1000-53599 1-2 50-500 5-6 53691-212289 2-3 100-5000 6-8 00144-229891 3-4 500-39386 8-12 47249-200386 Procedures Date Code Description Status 09/08/2023 25948 External ECG Rec>7D<15D Robel rding Completed 09/08/2023 53887 Venipuncture Routine Complet ed 08/21/2023 G9919 SCRN ND Pos ND Prov Of Rec C ompleted 03/30/2023 57130 Venipuncture Routine Complet ed 03/30/2023 1111F D/C [...] PA-C 03/30/2023 D64.9 Anemia, unspecified Mildred VIVEK aYp 03/30/2023 I95.1 Orthostatic hypotension Deb tyson Yap PA-C Plan of Treatment Future Appointment(s):* 10/11/2023 2:30 pm - Mildred Yap PA-C at [place] * 10/07/2023 8:30 am - [facility] - [place] [facility] [place] * 10/13/2023 2:00 pm - Sarah Molina MD at [place] * 11/27/2023 3:00 pm - Sarah Molina MD at [place] 09/27/2023 - Mildred Yap PA-C* F32.1 Major [...] fallopian tube and broad ligament* Follow up:* [facility]RE[facility] Functional Status Description No Information Available Mental Status Description No Information Available Referrals Description No Information Available
--- OUTSIDE RECORDS SUMMARY | 2023-11-02 17:09 | External Medical Summary | Continuity of Care Document ---
Author Name JESE MOLINA MD Address [address], [place] [address] Phone [phone] [facility] Address [address], [place] [address] Phone [phone] Social History Type Date Description Comments Sex [...] Medications SIG Qnty Indications Ordering Provider Date [id number] Capsules DR 1 by mouth every day 30 mins before breakfast for 8 weeks 60caps R11.0 Jese Molina MD 08/21/2023 [id number] Tablets 1 tab by mouth up to three times a day as needed for pain with food Unknown 03/23/2023 Tylenol Extra [id number] Tablets 2 by mouth three times a day Unknown 03/22/2023 Metoclopramide HCL5mg Tablets take 1 tablet by mouth three times daily before meals X 10 days- [place] [facility] [place] History Medications [id number] Capsules 1 by mouth twice a day 20caps Unknown 03/23/2023 - Sulfamethoxazole/Trimethopr im [id number] Tablets 1 by mouth twice a day Unknown 03/22/2023 - 01/2023 Sulfamethoxazole/Trimethopr im [id number] Tablets 1 by mouth twice a day Unknown 03/17/2023 - Immunizations CPT Code Status Date Vaccine Lot # [id number] Given 07/20/2021 Bexsero [id number] 20709 Given 12/13/2019 Menactra/Menveo Meningococcal Conjugate Age 9 Months-55Yr [id number] 71131 Given 12/13/2019 Bexsero [id number] 72109 Given 08/19/2016 HPV Vaccine (Gardasil-9) [id number] 31240 Given 04/15/2016 HPV Vaccine (Gardasil-9) [id number] 93417 Given 01/27/2016 HPV Vaccine (Gardasil-9) [id number] 54589 Given 05/29/2015 Menactra/Menveo Meningococcal Conjugate Age 9 Months-55Yr [id number] 85038 Given 05/29/2015 Tdap (Tetanus, diphtheria & acel. pertussis) Adacel or Boostrix [id number] 76430 Given 01/11/2011 VFC [id number] 46719 Given 01/11/2011 VFC Influenza 51103 Given 01/11/2011 Influenza Vac, Split 3 Yr s And Up [id number] 66199 Given 12/17/2009 VFC Hep A Ped Inj [id number] 31613 Given 06/16/2009 VFC Hep A Ped Inj [id number] 54575 Given 06/16/2009 VFC Varivax [id number] 89375 Given 06/16/2009 VF HTiX-Her-DKJ [id number] 82184 Given 07/03/2007 MMR Vaccine 95463 Given 10/06/2005 Pneumococcal Vaccine/Pneu movax 23 83489 Given 09/06/2005 Varicella (Chicken Pox) V accine 92428 Given 09/06/2005 MMR Vaccine 26410 Given 02/04/2005 Hib PRP-T Conjugate 4 Dos e Schedule 29823 Given 02/04/2005 Hep B Ped/Adolescent Vac 94506 Given 02/04/2005 DTaP (DT & Acel lular Pertussis) (Daptacel) Vac <7 Yr 77904 Given 12/07/2004 Poliovirus Vaccine, (IPV) 15705 Given 05/06/2004 DTaP (DT & Acel lular Pertussis) (Daptacel) Vac <7 Yr 07364 Given 05/06/2004 Pneumococcal Vaccine/Pneu movax 23 77060 Given 03/06/2004 Poliovirus Vaccine, (IPV) 01929 Given 03/06/2004 DTaP (DT & Acel lular Pertussis) (Daptacel) Vac <7 Yr 74892 Given 03/06/2004 Hib PRP-T Conjugate 4 Dos e Schedule 40348 Given 03/06/2004 Pneumococcal Vaccine/Pneu movax 23 42228 Given 03/06/2004 Hep B Ped/Adolescent Vac 44482 Given 01/12/2004 DTaP (DT & Acel lular Pertussis) (Daptacel) Vac <7 Yr 59565 Given 01/09/2004 Hep B Ped/Adolescent Vac 74960 Given 01/09/2004 Poliovirus Vaccine, (IPV) 29475 Given 01/09/2004 Hib PRP-T Conjugate 4 Dos e Schedule 24903 Given 2003 Hep B Ped/Adolescent Vac 35548 Refused 08/21/2023 Influenza Virus Vaccine, Quadrivalent, Split Virus, Im Use 6-35 92238 Refused 02/07/2023 Moderna Sars-Co v-2 (Cov-19) vacc,100 mcg/ 0.5 mL 12Y+EMR Doc Only 33179 Refused 07/02/2020 Influenza Virus Vaccine, Quadrivalent, Im Use 87099 Refused 09/19/2019 Influenza Virus Vaccine, Quadrivalent, Im Use 34382 Refused 08/17/2018 Influenza Virus Vaccine, Quadrivalent, Im Use 01322 Refused 01/27/2016 Influenza Virus Vaccine, Quadrivalent, Im [...] kg/m2 Body Mass Index Percentile 76 % [place] Body Weight 115 lb 08/21/2023 3:41pm BP Systolic 120 mmHg BP Diastolic 70 mmHg Body Temperature 98.5 F Heart Rate 78 /min Respiratory Rate 16 /min Weight 145.12 lb Weight 65.829 kg Weight Percentile 75th Height 63.75 inches 5'3.75" Height Percentile 41 % BMI (Body Mass Index) 25.1 kg/m2 Body Mass Index Percentile 79 % [place] Body Weight 115 lb Results Test Acquired Date Facility Test Result H/L [place] [facility] Panel 09/08/2023 [facility] [place], [place] [id number] [phone] TSH 1.47 uIU/mL 0.50-6.00 Comp. Met 09/08/2023 [facility] [address] [place] [address] [phone] Glucose 89 mg/dL 70-110 BUN 9 mg/dL [...] GFR 115 ML/MIN/1.73SQM >60 CBC W/Diff 09/08/2023 [facility] [place], [place] [id number] [phone] WBC 11.6 10^3/M3 High 3.1-9.2 RBC 4.16 10^6/M3 3.70-5.50 HGB 12.0 GR/DL 11.5-16.1 HCT 37.9 % 34.5-47.8 MCV 91.1 CUMICR 82.6-95.8 MCH 28.8 PICOGR 27.9-32.9 MCHC 31.6 % Low 32.6-35.4 RDW 17.3 % High 11.4-14.6 PLT 458 10^3/M3 High 140-350 MPV 7.6 CUMICR 7.0-10.6 %Neut 76.6 % High 40.0-75.0 %Lymph 16.2 % Low 17.0-45.0 %[place] 5.3 % 1.0-11.0 %Eos 0.5 % 0.0-6.0 %Baso 1.4 % 0.0-2.0 #Neut 8.9 10^3/M3 High 1.5-8.0 #Lymph 1.9 10^3/M3 0.8-3.2 #[place] 0.6 10^3/M3 0.0-0.8 #Eos 0.1 10^3/m3 0.0-0.4 #Baso 0.2 10^3/m3 0.0-0.2 Urine Culture 09/08/2023 [facility] [address] [place] [address] [phone] Urine Source URINE Urc Comment UROGENITAL CONTA <SEE NOTE> 1 Urinalysis 09/08/2023 [facility] [place], [place] [id number] [phone] Color COLORLESS Appearance CLOUDY Abnormal Clear Spec.Grav. 1.017 1.005-1.025 Leukocytes NEGATIVE Negative Nitrite NEGATIVE Negative PH 7.5 6.0-7.5 Protein NEGATIVE Negative Urine Glucose NEGATIVE Negative Ketone NEGATIVE Negative Urobilinogen NORMAL E.U./DL Normal Bilirubin NEGATIVE Negative Blood NEGATIVE Negative WBC-U 3-5 /HPF 0-5/HPF RBC-U 0-2 /HPF 0-5/HPF Bacteria TRACE None Seen Squamous 3-5 /HPF 0-5/HPF Order 09/08/[address] [address] [phone] Zio - playground monitor extended 8 days to 15 days <pending> Laboratory test finding 03/30/2023 [facility] [place], [place] [id number] [phone] BhCG 5 mIU/ML 0-5 2 CBC W/Diff 03/30/2023 [facility] [place], [place] [id number] [phone] WBC 9.8 10^3/M3 High 3.1-9 .2 RBC 3.91 10^6/M3 3.70-5.50 HGB 11.6 GR/DL 11.5-16.1 HCT 36.0 % 34.5-47.8 MCV 92.1 CUMICR 82.6-95.8 MCH 29.6 PICOGR 27.9-32.9 MCHC 32.1 % Low 32.6-35.4 RDW 14.8 % High 11.4-14.6 PLT 567 10^3/M3 High 140-350 MPV 6.9 CUMICR Low 7.0-10.6 %Neut 65.4 % 40.0-75.0 %Lymph 25.8 % 17.0-45.0 %[place] 7.1 % 1.0-11.0 %Eos 0.6 % 0.0-6.0 %Baso 1.1 % 0.0-2.0 #Neut 6.4 10^3/M3 1.5-8.0 #Lymph 2.5 10^3/M3 0.8-3.2 #[place] 0.7 10^3/M3 0.0-0.8 #Eos 0.1 10^3/m3 0.0-0.4 #Baso 0.1 10^3/m3 0.0-0.2 Iron Panel([employer]) 03/30/2023 [facility] [address] [place], [place] [phone] [phone] Iron 39 g /dL 25-140 % Saturation 11 % Low 30-35 Tibc 03/30/2023 [facility] [place], [place] [id number] [phone] Tibc 370 g /dL 260-400 Transferrin 264 mg/dL 200-400 Laboratory test finding 03/30/2023 [facility] [address] [place], [place] [address] [phone] Ferritin 14.50 ng/mL 6.00-115.0 1 UROGENITAL CONTAMINA [...] (mIU/mL) IN WEEKS (mIU/mL) 0.2-1 5-50 4-5 1000-53134 1-2 50-500 5-6 [id number] 2-3 100-5000 6-8 [id number] 3-4 500-17967 8-12 35126-670837 Procedures Date Code Description Status 09/08/2023 71271 External ECG Rec>7D<15D Robel rding Completed 09/08/2023 65628 Venipuncture Routine [facility] ed 08/21/2023 G9919 SCRN ND Pos ND Prov Of Rec C ompleted 03/30/2023 73767 Venipuncture Routine Complet ed 03/30/2023 1111F D/C [...] cyst, unspecified side Office Visit 03/30/2023 3:30p Robertatrudi medina PA-C N10 Acute pyelonephritis O00.90 Unspecified ectopic without intrauterine D64.9 Anemia, unspecified I95.1 Orthostatic hypotens ion Assessments Date Code Description Provider 09/08/2023 R31.9 Blood in urine Jese stanford MD 09/08/2023 R30.0 Dysuria Jese merlos MD 09/08/2023 R55 Syncope Jese merlos MD 08/21/2023 R11.0 Nausea without vomiting Aubrey Molina MD 08/21/2023 N83.209 Unspecified ovarian cyst, un specified side eJse Molina MD 03/30/2023 N10 Acute pyelonephritis Mildred Lemon PA-C 03/30/2023 O00.90 Unspecified ecto pic without intrauterine Mildred Lemon PA-C 03/30/2023 D64.9 Anemia, unspecified Mildred Lemon PA-C 03/30/2023 I95.1 Orthostatic hypotension Deb tyson Lemon PA-C Plan of Treatment Future Appointment(s):* 10/13/2023 2:00 pm - Jese Molina MD at [facility] * 11/27/2023 3:00 pm - Jese Molina MD at [facility] 09/08/2023 - Jese Molina MD* R31.9 Blood [...]
--- OUTSIDE RECORDS SUMMARY | 2023-11-02 17:10 | External Medical Summary ---
Author Name Unknown Address Unknown Organization [facility]:[address] [place] [address] Laboratory Report Ordering Provider Test Date Status null,LUIS ARMANDO 09/08/2023 15:48 Final Observation Date Value Abnormality Reference (Units ) Status WBC 09/09/2023 14:02 11.6 Above high normal 3.1-9.2 (10^3/M3) Final RBC 09/09/2023 14:02 4.16 3.70-5.50 (10^6/M3) Final Hemoglobin 09/09/2023 14:02 12.0 11.5-16.1 (GR/DL) Final HCT 09/09/2023 14:02 37.9 34.5-47.8 (%) Final MCV 09/09/2023 14:02 91.1 82.6-95.8 (CU MICR) Final MCH 09/09/2023 14:02 28.8 27.9-32.9 (COLLEEN GR) Final MCHC 09/09/2023 14:02 31.6 Below low normal 32.6-35.4 (%) Final RDW 09/09/2023 14:02 17.3 Above high normal 11.4-14.6 (%) Final PLT 09/09/2023 14:02 458 Above high normal 140-350 (10^3/M3) Final MPV 09/09/2023 14:02 7.6 7.0-10.6 (CU MICR) Final Neutrophils/100 leukocytes in Blood 09/09/2023 14:02 76.6 Above high normal 40.0-75.0 (%) Final Lymphs % 09/09/2023 14:02 16.2 Below low normal 17.0-45.0 (%) Final Monos 09/09/2023 14:02 5.3 1.0-11.0 (%) Final %EOS 09/09/2023 14:02 0.5 0.0-6.0 (%) Final Basos 09/09/2023 14:02 1.4 0.0-2.0 (%) Final Neutrophils [#/volume] in [place] by Manual count 09/09/2023 14:02 8.9 Above high normal 1.5-8.0 (10^3/M3) Final Lymphs % 09/09/2023 14:02 1.9 0.8-3.2 (10^3/M3) Final Monos 09/09/2023 14:02 0.6 0.0-0.8 (10^3/M3) Final #EOS 09/09/2023 14:02 0.1 0.0-0.4 (10^3/m3) Final #BASO 09/09/2023 14:02 0.2 0.0-0.2 (10^3/m3) Final Performing Location [facility] [address] [place] [address]
--- OUTSIDE RECORDS SUMMARY | 2023-11-02 17:10 | External Medical Summary ---
Author Name Unknown Address Unknown Organization K1C:[facility] [address] [place] [address] Laboratory Report Ordering Provider Test Date Status null,LUIS ARMANDO 09/08/2023 15:06 Final Observation Date Value Abnormality Reference (Units ) Status URINE SOURCE 09/11/2023 08:27 URINE Final URC COMMENT 09/11/2023 08:27 UROGENITAL CONTAMINATION Final Performing Location [facility] [address] [place] [id number]
--- OUTSIDE RECORDS SUMMARY | 2023-11-02 17:10 | External Medical Summary ---
Author Name Unknown Address Unknown Organization K1C:[facility] [address] [place] [address] Laboratory Report Ordering Provider Test Date Status null,LUIS ARMANDO 09/08/2023 15:06 Final Observation Date Value Abnormality Reference (Units ) Status COLOR 09/09/2023 14:03 COLORLESS Final APPEARANCE 09/09/2023 14:03 CLOUDY Abnormal CLEAR Final SPEC.GRAV. 09/09/2023 14:03 1.017 1.005-1.025 Final LEUKOCYTES 09/09/2023 14:03 NEGATIVE NEGATIVE Final NITRITE 09/09/2023 14:03 NEGATIVE NEGATIVE Final PH 09/09/2023 14:03 7.5 6.0-7.5 Final PROTEIN 09/09/2023 14:03 NEGATIVE NEGATIVE Final Glucose [Presence] in Urine 09/09/2023 14:03 NEGATIVE NEGATIVE Final KETONE 09/09/2023 14:03 NEGATIVE NEGATIVE Final UROBILINOGEN 09/09/2023 14:03 NORMAL NORMAL (E.U./DL) Final BILIRUBIN 09/09/2023 14:03 NEGATIVE NEGATIVE Final BLOOD 09/09/2023 14:03 NEGATIVE NEGATIVE Final WBC, Urine 09/09/2023 14:03 3-5 0-5/HPF (/HPF) Final RBC-U 09/09/2023 14:03 0-2 0-5/HPF (/HPF) Final BACTERIA 09/09/2023 14:03 TRACE NONE SEEN Final SQUAMOUS 09/09/2023 14:03 3-5 0-5/HPF (/HPF) Final Performing Location [facility] [address] [place] [address]
--- OUTSIDE RECORDS SUMMARY | 2023-11-02 17:10 | External Medical Summary | Continuity of Care Document ---
Author Name Unknown Organization [facility] Address [address] [place] [id number] Care Team Providers Care Resawyer Name Role Phone Jeremias Brennan Brad Primary Care Physician [phone] [id number] Date(s): 08/05/23 - 08/05/[address] [phone] Encounter Diagnosis Abdominal pain(Discharge Diagnosis) - 08/05/23 Discharge Disposition: Home or Self Care Attending Physician: MD Hampton Julie Marie Allergies, Adverse Reactions, Alerts No Known Medication Allergies Functional Status 08/05/23 Speech Pattern Clear 08/05/23 History of Fall in Last 3 Months Wyatt N o Presence of Secondary Diagnosis Wyatt No Use of Ambulatory Aid Wyatt None/bedrest /nurse assist IV/Heparin Lock Fall Risk Wyatt No Gait/Transferring Fall Risk Wyatt Normal /bedrest/immobile Mental Status Fall Risk Wyatt Oriented t o own ability Wyatt Fall Risk Score 0 Wyatt Fall Risk No Risk Medications cefdinir 300 mg oral capsule Start: 03/23/23 0:49:00 EDT, 1 cap, PO, q12h, Disp# 20 cap, Pharmacy: [id number] Start Date: 03/23/23 Stop Date: 04/02/23 Status: Ordered ibuprofen Start: 03/22/23 18:30:00 EDT, 400 mg =, PO, q6h, PRN: as needed for pain Start Date: 03/22/23 Status: Ordered ondansetron Start: 08/05/23 22:04:00 EDT, PO, ONCE Start Date: 08/05/23 Status: Ordered Reglan 10 mg oral tablet Start: 08/05/23 22:06:00 EDT, 1 tab, PO, ac and hs, Disp# 56 tab, Pharmacy: [id number] Start Date: 08/05/23 Stop Date: 08/19/23 Status: Ordered sulfamethoxazole-trimethoprim 800 mg-160 mg oral tablet Start: 03/22/23 18:29:00 EDT, 1 tab, PO, bid Start Date: 03/22/23 Status: Ordered Tylenol Start: 03/22/23 18:29:00 EDT, 1,000 mg =, PO, q8h, PRN: as needed for pain Start Date: 03/22/23 Status: Ordered Zofran Start: 03/22/23 18:30:00 EDT, 4 mg =, PO, Daily, PRN: as needed for nausea/vomiting Start Date: 03/22/23 Status: Ordered Problem List No Chronic Problems Diagnosis Diagnosis Type Effective Dates Health Status Cl inical Service Informant Abdominal pain Discharge Diagnosis 08/05/23 Non-Specified Results Laboratory List Name Date Drugs of Abuse w NO confirm, Urine (Urin e Drug Screen, NO confirm, in house) 08/05/23 Urine Analysis w/ Reflexed Microscopic. (Urinalysis w/ Reflexed Microscopic.) 08/05/23 Added on Lab order 08/05/23 Lactic Acid Level 08/05/23 Lipase Level 08/05/23 Complete Blood Count w Differential (CBC w Platelets and Diff) 08/05/23 Comprehensive Metabolic Panel (CMP) 08/05 HCG, Beta, Quantitative (HCG, BETA) 08/05 Urine HCG Nurse POC (Urine [place] POC) 08/05/23 Most recent to oldest [Reference Range]: 1 eGFR CKD-EPI [>60 mL/min/1.73 m2] >90 mL /min/1.73 m2 (08/05/23 5:09 PM) Beta HCG Ref Range [negative] (08/05/23 6:34 PM) Request of Physician serum (08/05/23 5:10 PM) Action Taken YES (08/05/23 5:10 PM) Beta hCG Ql Negative 1 (08/05/23 6:34 PM) Estimated CrCl 99.30 mL/min (08/05/23 6:27 PM) MPV [9.0-12.2 fL] 9.2 fL (08/05/23 5:09 PM) Immature Gran% 0.4 % (08/05/23 5:09 PM) Neut% 68.4 % (08/05/23 5:09 PM) Lymph% 22.6 % (08/05/23 5:09 PM) Christian% 8.0 % (08/05/23 5:09 PM) Baso% 0.3 % (08/05/23 5:09 PM) Eos% 0.3 % (08/05/23 5:09 PM) Immat Gran, Abs [0-0.4 K/uL] 0.04 K/uL (08/05/23 5:09 PM) Neut, Abs [2.0-7.7 K/uL] 6.61 K/uL (08/05/23 5:09 PM) Lymph, Abs [1.0-3.4 K/uL] 2.19 K/uL (08/05/23 5:09 PM) Christian, Abs [0-1.0 K/uL] 0.77 K/uL (08/05/23 5:09 PM) Baso, Abs [0-0.1 K/uL] 0.03 K/uL (08/05/23 5:09 PM) Eos, Abs [0-0.5 K/uL] 0.03 K/uL (08/05/23 5:09 PM) Type of Diff: AUTO (08/05/23 5:09 PM) RDW [11.5-14.2 %] 14.4 % *HI* (08/05/23 5:09 PM) Anion Gap [5-14 mmol/L] 11 mmol/L (08/05/23 5:09 PM) Alb [3.5-5.2 g/dL] 4.3 g/dL (08/05/23 5:09 PM) Alk Phos [35-115 unit/L] 66 unit/L (08/05/23 5:09 PM) ALT [0-33 unit/L] 5 unit/L (08/05/23 5:09 PM) Amphetamines(u) NONE DETECTED (08/05/23 6:28 PM) AST [0-32 unit/L] 10 unit/L (08/05/23 5:09 PM) Barbiturates(u) NONE DETECTED (08/05/23 6:28 PM) Benzodiazepines(u) NONE DETECTED (08/05/23 6:28 PM) HCG (q) [<5 mIU/mL] <5 mIU/mL 2 (08/05/23 5:09 PM) Bili (u) [NEG] NEGATIVE (08/05/23 6:28 PM) BUN [6-23 mg/dL] 9 mg/dL (08/05/23:09 PM) Ca [8.4-10.2 mg/dL] 9.1 mg/dL (08/05/23: PM) Cl- [98-107 mmol/L] 106 mmol/L (08/05/23: PM) HCO3 [22-29 mmol/L] 25 mmol/L (08/05/23: PM) Cocaine(u) NONE DETECTED (08/05/23 6: PM) Cret [0.60-1.00 mg/dL] 0.82 mg/dL (08/05/23: PM) Glu [74-109 mg/dL] 100 mg/dL 3 (08/05/23: PM) Hct [35-44 %] 35.3 % (08/05/23: PM) Hgb [11.7-15.0 g/dL] 11.3 g/dL *LOW* (08/05/23:09 PM) K [3.5-5.1 mmol/L] 3.9 mmol/L (08/05/23: PM) Ketones [NEG mg/dL] 20 mg/dL *Abnormal* (08/05/23: PM) Lactate [0.5-2.2 mmol/L] 0.7 mmol/L (08/05/23:09 PM) Lipase [13-60 unit/L] 19 unit/L (08/05/23:09 PM) Leuk Est [NEG] NEGATIVE (08/05/23: PM) Marijuana(u) PRESUMPTIVE POSITIVE DRUG RESULT 4 (08/05/23 6:28 PM) MCH [28-33 pg] 27.7 pg *LOW* (08/05/23 5:09 PM) MCHC [32-36 g/dL] 32.0 g/dL (08/05/23 5:09 PM) MCV [81-96 fL] 86.5 fL (08/05/23 5:09 PM) Na [136-145 mmol/L] 142 mmol/L (08/05/23 5:09 PM) Nitrite (u) [NEG] NEGATIVE (08/05/23 6:28 PM) Opiates(u) NONE DETECTED (08/05/23 6:28 PM) Plts [150-350 K/uL] 283 K/uL (08/05/23 5:09 PM) RBC [3.90-5.00 M/uL] 4.08 M/uL (08/05/23 5:09 PM) T Bili [0.0-1.2 mg/dL] 0.3 mg/dL (08/05/23 5:09 PM) Prot [6.4-8.3 g/dL] 7.1 g/dL (08/05/23 5:09 PM) Appear (u) SLIGHTLY CLOUDY (08/05/23 6:28 PM) Color (u) YELLOW (08/05/23 6:28 PM) Glu (u) [NEG mg/dL] NEGATIVE mg/dL (08/05/23 6:28 PM) Hgb (u) [NEG] SMALL *Abnormal* (08/05/23 6:28 PM) pH (u) [5.0-8.0 unit] 6.0 unit (08/05/23 6:28 PM) Prot (u) [NEG mg/dL] 30 mg/dL *Abnormal* (08/05/23 6:28 PM) Urobili [0.1-1.0 EU/dL] 0.1-1.0 EU/dL (08/05/23 6:28 PM) SG [1.005-1.030] 1.019 (08/05/23 6:28 PM) WBC [4.0-10.4 K/uL] 9.67 K/uL (08/05/23 5:09 PM) 1Result Comment: Performed at: [facility], [address] [place] [address] [place] [address] 2Result Comment: HCG levels may be falsely elevated by a number of interfering factors includingheterophilic antibodies. If the HCG result is inconsistent with or not supported by clinical evidence, results should be confirmed by a urine HCG test. Because of the concern regarding false positive results, HCG results should only be used in conjunction with other clinical information before acting onthe result. 3Result Comment: ADA recommendation for FASTING Serum/Plasma Glucose: Normal: 70-100 mg/dL Prediabetes: 100-125 mg/dL Diabetes: 126 mg/dL or higher 4Result Comment: Unconfirmed, intended for Medical treatment purposes only Radiology Reports * Exam Date Time Procedure Performing Provider Status 08/05/23 8:[address] Abdomen and Pelvis w/ Contrast Jeanette Mckeon; Final Notes: (CT Abdomen and Pelvis w/ Contrast) Reason For Exam: lower abd pain with n/v/d CT Abdomen and Pelvis w/ Contrast EXAMINATION: CT Abdomen and Pelvis w/ Contrast CLINICAL HISTORY: lower abd pain with n/v/d COMPARISON: CT abdomen pelvis 03/22/2023 TECHNIQUE: CT abdomen pelvis with contrast CONTRAST: Contrast Type (IV): Omnipaque 350 Contrast Volume (IV) in ml: 100.00 DOSE: Total Reported Dose Length Product (DLP) = 259.27 mGy.cm FINDINGS: Lower chest: Subsegmental atelectasis. ABDOMEN Liver, Gallbladder \T\ bile ducts: No suspicious hepatic mass. Focal fatty sparing along the falciform ligament. No bile duct dilation. Normal gallbladder Pancreas: Normal Spleen: Mild splenomegaly Adrenals: Normal Kidneys, collecting system and ureters: Symmetric renal enhancement. No hydronephrosis. No nephrolithiasis. Retroperitoneum, lymph nodes, and vessels: Normal course and caliber of the abdominal aorta. No retroperitoneal lymphadenopathy Bowel \T\ Mesentery: Nonobstructed bowel. Mild diverticulosis of the transverse colon. Normal appendix. No intra-abdominal free air. No focal fat stranding. PELVIS Bladder: Normal for degree of distention Reproductive organs: Normal uterus. Likely left corpus luteum. Small to moderate volume pelvic freefluid Extraperitoneal, lymph nodes, vessels: No lymphadenopathy Osseous and body wall: Acute osseous abnormality. No suspicious osseous lesion. IMPRESSION: No definite CT correlate for the patient's symptoms. [place] Act 112: This study does not meet the requirements of [place] Act 112. Dr. Vicki Hidalgo is the dictating resident. Finalized reports status indicates that the attending hasreviewed the images and report, and agrees with the interpretation. Preliminary report status should be regarded as NOT interpreted by the attending radiologist. Workstation ID: [id number] Final Dictated by:DO Hidalgo Manal Dictated DT/TM:08/05/2023 9:15 Resident:DO Hidalgo Manal Signed by:MD Torres Christine M Signed (Electronic Signature):08/05/2023 9:14 p Vital Signs Most recent to oldest [Reference Range]: 1 2 Height 165.1 cm (08/05/23 3:44 PM) Patient Weight 66.3 kg (08/05/23 3:44 PM) Body Mass Index 24.32 kg/m2 (08/05/23 3:44 PM) BMI Percentile 74.73 1 (08/05/23 3:44 PM) Temperature [36.5-37.9 DegC] 36.6 DegC (08/05/23 8:46 PM) 36.8 DegC (08/05/23 3:44 PM) Heart Rate 67 bpm (08/05/23 8:46 PM) 68 bpm (08/05/23 3:44 PM) Respiratory Rate 18 br/min (08/05/23 8:46 PM) 19 br/min (08/05/23 3:44 PM) Blood Pressure 103/65mmHg (08/05/23 8:46 PM) 124/85mmHg (08/05/23 3:44 PM) Mean Blood Pressure 95 mmHg (08/05/23 3:44 PM) Cuff Pulse Pressure 38 mmHg (08/05/23 8:46 PM) 39 mmHg (08/05/23 3:44 PM) BP Location # 1 Left Arm (08/05/23 3:44 PM) BMI Z-Score 0.67 2 (08/05/23 3:44 PM) Weight Z-Score 0.73 3 (08/05/23 3:44 PM) Weight Percentile 76.61 4 (08/05/23 3:44 PM) Height/Length Z-Score 0.28 5 (08/05/23 3:44 PM) Height New Percentile 60.85 6 (08/05/23 3:44 PM) 1Result Comment: ^~:!Percentile Source -CDC-WHO 2Result Comment: ^~:!ZScore Source -CDC-WHO 3Result Comment: ^~:!ZScore Source [facility] 4Result Comment: ^~:!Percentile Source [facility] 5Result Comment: ^~:!ZScore Source [facility] 6Result Comment: ^~:!Percentile Source -[facility] Social History Social History Type Response Smoking Status Never smoked cigaret selvin Sex Female Emergency department Summary note * MD Chandan, Denis Aragon: PERFORM, MODIFY, MODIFY MD Licha, Uziel Mcclendon: MODIFY Event Display: ED Summary Authored Date: [id number] Basic Information Time Seen: MD Berta, Deja Lazar 08/05/2023 16:38 Chief Complaint c/o lower abd pain and loose stools. seen at [place] ED last night. History of Present Illness Patient is a 17-year-old femalewith past medical history ofovarian cystsandectopic pregnancystatus postsurgical andtubectomythat happened 5 months ago. Patient notedlower bilateral abdominal painfor the past 4 days. She has been nauseous and vomitingthroughout this time.9 out of 10dull pain. She has noted dizziness, loose stools,and improvement when eating foodbut shortly after feeling worse. Today she noticed her vomitus being pinklikely due toPedialyte that she has been drinking torepleteelectrolytes. She states lying downrelieves some of the pressure in her lower abdominal quadrants. Patient states bowel movementsrelieve some of the abdominal pressure. Patient states she has not had UTI symptoms of dysuria. Patient has had regular mensesfor the past 6 months. Sexual partners include 2 peopleoverthe past 6 months andlast time of intercourse was 2- 1/2 months agowithout protection. No history ofSTI. Patient denieshematochezia, melena,recent weight loss, and/or night sweats. Review of Systems See HPI for pertinent ROS. All other systems have beenreviewed and are negative. Physical Exam Vitals & Measurements T:36.8C HR:68(Monitored) RR:19 BP:124/85 SpO2:100% Oxygen Therapy:Room air HT:165.1cm WT:66.300kg(Dosing) WT:66.3kg BMI:24.32 General:Alert and oriented. Patient in obvious discomfortlying under her blanket in the exam chair. HENT:Oral mucosa is moist.Pharynx without erythema or exudate. Neck:Supple, Non-tender, Respiratory:Lungs are clear to auscultation, Respirations are non- labored, Breath sounds are equal. Cardiovascular:Normal rate, Regular rhythm Abdomen:Soft, tenderness inbilateral lower quadrants. Non- distended, Normal bowel sounds. No organomegaly. No peritoneal signs, no rebound no guarding. Negative forpain at McBurney's point and negative for Lazar sign. Musculoskeletal:No deformity. Integumentary:Warm. Dry. No rash on clothed exam. Neurologic:No focal deficits, Normal deep tendon Reflexes. Psychiatric:Cooperative, Appropriate mood & affect. Medical Decision Making 17-year-old female with acuteabdominal pain starting 4 days ago in the bilateral lower quadrantswith nausea, vomiting,loose stools, and dizziness. Considering the patient'spastectopicpregnancy surgical removal, laboratory findings, exam findingsdifferential includesabdominaladhesions,viralgastritis, colitis, ovarian cyst rupture,endometriosis. Lower on the differentialof ovarian torsion. Plan forCT scanto investigate etiology. Reexamination/Reevaluation 20:46 CT abdomen revealed no acute pathology. CT noted moderate pelvic free fluid. Etiology could caused by simple ovarian cyst rupture. Patient clinical presentation has largely improved since beingin the ED. Communicated to patient that no immediate intervention will be done here and that she ismedically stable to go home. Pt communicated understanding with plan and agreed to follow up with PCP. Gave walk out prescription of Zofran 1x with prescription of metoclopramide for 14 days. Assessment/Plan See plan above Medication Reconciliation Unchanged acetaminophen (Tylenol)1,000 Milligram by mouth every 8 hours as needed as needed for pain. cefdinir (cefdinir 300 mg oral capsule)1 cap by mouth every 12 hours for 10 Days. Refills: 0. [id number] Milligram by mouth every 6 hours as needed as needed for pain. ondansetron (Zofran)4 Milligram by mouth once daily as needed as needed for nausea/vomiting. sulfamethoxazole-trimethoprim (sulfamethoxazole-trimethoprim 800 mg-160 mg oral tablet)1 tab(s) by mouth 2 times daily. Attestation This patient was seen and evaluated along with the resident. I agree with above history, physical examination and medical decision-making. I participated in the following activities of this patients care: the medical history, the physical exam, medical decision making. I personally performed: supervision of the patient's care, the medical history, the physical exam, the medical decision making. The case was discussed with: the resident. I agree with the E&M service. Results interpretation: I agree with the study interpretation in this patient's care and the documentation. Uziel Hurt MD Problem List/Past Medical History Ongoing No chronic problems Medication Administration Administered: Medications: NS Bolus, 1000 mL, Bolus-IV (08/05/2023 17:00 EDT) Reglan, 5 mg, IV Push (08/05/2023 17:38 EDT) Ofirmev, 1000 mg, IV (08/05/2023 17:43 EDT) Not Administered: Medications: Zofran (Family refused) Allergies No Known Medication Allergies Lab Results Chemistry LATEST RESULTS HISTORICAL RESULTS Na 08/05/23 17:09 142 mmol/L 03/22/23 137 mmol/L K 08/05/23 17:09 3.9 mmol/L 03/22/23 3.5 mmol/L Cl- 08/05/23 17:09 106 mmol/L 03/22/23 105 mmol/L HCO3 08/05/23 17:09 25 mmol/L 03/22/23 21 mmol/L Low Anion Gap 08/05/23 17:09 11 mmol/L 03/22/23 11 mmol/L BUN 08/05/23 17:09 9 mg/dL 03/22/23 8 mg/dL Cret 08/05/23 17:09 0.82 mg/dL 03/22/23 0.74 mg/dL Estimated CrCl 08/05/23 18:27 99.30 03/22/23 114.90 eGFR CKD-EPI 08/05/23 17:09 >90 mL/min/1.73 m2 03/22/23 >90 mL/min/1.73 m2 Glu 08/05/23 17:09 100 mg/dL 03/22/23 86 mg/dL Ca 08/05/23 17:09 9.1 mg/dL 03/22/23 9.3 mg/dL CBC LATEST RESULTS HISTORICAL RESULTS WBC 08/05/23 17:09 9.67 K/uL 03/22/23 13.32 K/uL High Hgb 08/05/23 17:09 11.3 g/dL Low 03/22/23 10.3 g/dL Low Hct 08/05/23 17:09 35.3 % 03/22/23 30.9 % Low RBC 08/05/23 17:09 4.08 M/uL 03/22/23 3.43 M/uL Low MCV 08/05/23 17:09 86.5 fL 03/22/23 90.1 fL MCHC 08/05/23 17:09 32.0 g/dL 03/22/23 33.3 g/dL MCH 08/05/23 17:09 27.7 pg Low 03/22/23 30.0 pg RDW 08/05/23 17:09 14.4 % High 03/22/23 13.0 % Plts 08/05/23 17:09 283 K/uL 03/22/23 299 K/uL MPV 08/05/23 17:09 9.2 fL 03/22/23 9.5 fL Type of Diff: 08/05/23 17:09 AUTO 03/22/23 AUTO Immature Gran% 08/05/23 17:09 0.4 % 03/22/23 0.3 % Neut% 08/05/23 17:09 68.4 % 03/22/23 66.4 % Lymph% 08/05/23 17:09 22.6 % 03/22/23 19.7 % Christian% 08/05/23 17:09 8.0 % 03/22/23 13.0 % Baso% 08/05/23 17:09 0.3 % 03/22/23 0.3 % Eos% 08/05/23 17:09 0.3 % 03/22/23 0.3 % Immat Gran, Abs 08/05/23 17:09 0.04 K/uL 03/22/23 0.04 K/uL Neut, Abs 08/05/23 17:09 6.61 K/uL 03/22/23 8.85 K/uL High Lymph, Abs 08/05/23 17:09 2.19 K/uL 03/22/23 2.62 K/uL Christian, Abs 08/05/23 17:09 0.77 K/uL 03/22/23 1.73 K/uL High Baso, Abs 08/05/23 17:09 0.03 K/uL 03/22/23 0.04 K/uL Eos, Abs 08/05/23 17:09 0.03 K/uL 03/22/23 0.04 K/uL Blood Gases LATEST RESULTS Lactate 08/05/23 17:09 0.7 mmol/L Liver/GI LATEST RESULTS HISTORICAL RESULTS ALT 08/05/23 17:09 5 unit/L 03/22/23 9 unit/L T Bili 08/05/23 17:09 0.3 mg/dL 03/22/23 0.3 mg/dL Alk Phos 08/05/23 17:09 66 unit/L 03/22/23 71 unit/L AST 08/05/23 17:09 10 unit/L 03/22/23 10 unit/L Lipase 08/05/23 17:09 19 unit/L Nutrition LATEST RESULTS HISTORICAL RESULTS Alb 08/05/23 17:09 4.3 g/dL 03/22/23 4.1 g/dL Prot 08/05/23 17:09 7.1 g/dL 03/22/23 7.1 g/dL Reproductive LATEST RESULTS HISTORICAL RESULTS Beta hCG Ql 08/05/23 18:34 Negative 03/22/23 Negative Beta HCG Ref Range 08/05/23 18:34 [negative] 03/22/23 [negative] Urine LATEST RESULTS HISTORICAL RESULTS Color (u) 08/05/23 18:28 YELLOW 03/22/23 YELLOW Appear (u) 08/05/23 18:28 SLIGHTLY CLOUDY 03/22/23 CLEAR Glu (u) 08/05/23 18:28 NEGATIVE mg/dL 03/22/23 NEGATIVE mg/dL Bili (u) 08/05/23 18:28 NEGATIVE 03/22/23 NEGATIVE Ketones 08/05/23 18:28 20 mg/dL Abnormal 03/22/23 20 mg/dL Abnormal SG 08/05/23 18:28 1.019 03/22/23 1.012 Hgb (u) 08/05/23 18:28 SMALL Abnormal 03/22/23 LARGE Abnormal pH (u) 08/05/23 18:28 6.0 unit 03/22/23 6.0 unit Prot (u) 08/05/23 18:28 30 mg/dL Abnormal 03/22/23 30 mg/dL Abnormal Urobili 08/05/23 18:28 0.1-1.0 EU/dL 03/22/23 0.1-1.0 EU/dL Nitrite (u) 08/05/23 18:28 NEGATIVE 03/22/23 NEGATIVE Leuk Est 08/05/23 18:28 NEGATIVE 03/22/23 TRACE Abnormal Added Tests LATEST RESULTS Request of Physician 08/05/23 17:10 serum Action Taken 08/05/23 17:10 YES Electronic Signature on File Electronically Reviewed/Signed by: Denis Hawley MD Author Signature Dt/Tm:08/05/2023 11:08 PM Resident Department of Anesthesia Electronically Reviewed/Signed by: Uziel Hurt MD Cosigner Signature Dt/Tm: 08/06/2023 09:31 PM Department of Emergency Medicine PRB * VIVEK Steele, Rafaela E: PERFORM, MODIFY DO Rosario Alexandra P: MODIFY Event Display: ED Summary Authored Date: [id number] Name:LEXIE HO Patient Number:[id number] :2005 Date of Service:08/05/2023 Care initiation note Limited HPI: Lexie is a 17 yof who comes to the ED c/o abd pain. Was seen at [facility] yesterday and told she is dehydrated. Mom states she wasstaying with a friend for a while andsince coming home 2 days ago she has been very sleepy, loose stools, nausea, and lower abd pain. rates pain 9/10 On limited exam: Vitals:Last Updated 08/05/23 15:44 Weights:Last Updated 08/05/23 15:44 Date Temp Pulse BP RR SpO2 FIO2 Date Wt(kg) Wt(lb) 08/05 15:44 36.8 68 124/85 19 100 RA 08/05 15:44 66.3 146 08/05 15:44 66.3 146 24 Hr Tmax:36.8 at 08/05 15:44 Initial Wt:08/05 66.3 kg 146 lb General- pale, alert,looks ill, Fully dressed sitting in a chair. Cardiovascular- normal peripheral perfusion. Lungs- nonlabored respirations. Neuro- alert and oriented without focal neurological deficit. Additional-lower abd pain Assessment/plan: DDX of abd pain with n/v/d Will orderCBC, CMP. lipase, UA, poc preg, CT abd/pelvis Plan for further history, evaluation, treatment and placement in This note was transcribed using voice recognition software. Because of this technology, there are often unintended grammatical, spelling, and other engine oiler errors. Please disregard these errors. This patient was evaluated only briefly in the care initiation area. A limited HPI and limited exam were performed and appropriate imaging and lab work was ordered if indicated based on a broad range of differentials. Once the patient is placed in a treatment room, a further evaluation and detailed history and physical exam should be performed to narrow the differentials and the patient's primary complaint. Attending Note: This patient was seen independently by the advanced practice provider. I did not participate in the careof this patient but was immediately available for consultation if needed and am signing this note for administrative purposes. Shannan Rosario DO Electronic Signature on File Electronically Reviewed/Signed by: Rafaela Steele PA-C Author Signature Dt/Tm:08/05/2023 03:47 PM Department of Emergency Medicine Electronically Reviewed/Signed by: Shannan Rosario DO Cosigner Signature Dt/Tm: 08/05/2023 03:48 PM Department of Emergency Medicine EED Patient Care team information Care Team Personnel Name: MD Anu, Jeremias Salinas Position: Referring - Provider Portal Plus Member Role: Primary Care Provider Address: Address: [place] [address] [place] Name: MD Chandan, Denis Aragon Position: Resident - Anesthesia Member Role: * Quality Review (1 day after created) Address: Address: [address] [place] [address] [place] Name: CORDELIA Baig, Terrell Position: RN Member Role: Direct Care Nurse Name: MD Hampton Julie Marie Position: Physician - Emerg Med SA Member Role: Attending Physician Address: Address: [address] [place] [address] [place] Name: MD Licha, Uziel Mcclendon Position: Physician - Emerg Med SA Member Role: * Quality Review (1 day after created) Address: Address: [address] [place] [address] [place] Care Team Related Persons Name: CONG HO Address: home [address] [place] [id number] Name: JEREMIAS HO Address: home [id number] [place] [id number]
--- OUTSIDE RECORDS SUMMARY | 2023-11-02 17:10 | External Medical Summary | Continuity of Care Document ---
Author Name JESE MOLINA MD Address [address], [place] [address] Phone [phone] [facility] Address [address], [place] [address] Phone [phone] Social History Type Date Description Comments Sex [...] Medications SIG Qnty Indications Ordering Provider Date Gfosueqxfe50pz Capsules DR 1 by mouth every day 30 mins before breakfast for 8 weeks 60caps R11.0 Jese Molina MD 08/21/2023 Kcvnocwjt031zo Tablets 1 tab by mouth up to three times a day as needed for pain with food Unknown 03/23/2023 Tylenol Extra Bndoufnv206up Tablets 2 by mouth three times a day Unknown 03/22/2023 Metoclopramide HCL5mg Tablets take 1 tablet by mouth three times daily before meals X 10 days- given at [facility] Unknown History Medications Vuatfzvg670rl Capsules 1 by mouth twice a day 20caps Unknown 03/23/2023 - Sulfamethoxazole/Trimethopr im [id number] Tablets 1 by mouth twice a day Unknown 03/22/2023 - 01/2023 Sulfamethoxazole/Trimethopr im LB269-171ct Tablets 1 by mouth twice a day Unknown 03/17/2023 - Immunizations CPT Code Status Date Vaccine Lot # [id number] Given 07/20/2021 Bexsero [id number] 51359 Given 12/13/2019 Menactra/Menveo Meningococcal Conjugate Age 9 Months-55Yr [id number] 47723 Given 12/13/2019 Bexsero [id number] 20159 Given 08/19/2016 HPV Vaccine (Gardasil-9) [id number] 27027 Given 04/15/2016 HPV Vaccine (Gardasil-9) [id number] 90334 Given 01/27/2016 HPV Vaccine (Gardasil-9) [id number] 02346 Given 05/29/2015 Menactra/Menveo Meningococcal Conjugate Age 9 Months-55Yr [id number] 52948 Given 05/29/2015 Tdap (Tetanus, diphtheria & acel. pertussis) Adacel or Boostrix [id number] 69545 Given 01/11/2011 VFC LNdO-[id number] 22237 Given 01/11/2011 VFC Influenza 24169 Given 01/11/2011 Influenza Vac, Split 3 Yr s And Up [id number] 42679 Given 12/17/2009 VFC Hep A Ped Inj [id number] [id number] 06821 Given 06/16/2009 VFC Hep A Ped Inj [id number] 0AA 96133 Given 06/16/2009 VFC Varivax 0727y 49005 Given 06/16/2009 VF KKcM-Tat-TBU [id number] 79919 Given 07/03/2007 MMR Vaccine 33260 Given 10/06/2005 Pneumococcal Vaccine/Pneu movax 23 85074 Given 09/06/2005 Varicella (Chicken Pox) V accine 02428 Given 09/06/2005 MMR Vaccine 09612 Given 02/04/2005 Hib PRP-T Conjugate 4 Dos e Schedule 07482 Given 02/04/2005 Hep B Ped/Adolescent Vac 89322 Given 02/04/2005 DTaP (DT & Acel lular Pertussis) (Daptacel) Vac <7 Yr 53810 Given 12/07/2004 Poliovirus Vaccine, (IPV) 43645 Given 05/06/2004 DTaP (DT & Acel lular Pertussis) (Daptacel) Vac <7 Yr 69317 Given 05/06/2004 Pneumococcal Vaccine/Pneu movax 23 15026 Given 03/06/2004 Poliovirus Vaccine, (IPV) 28551 Given 03/06/2004 DTaP (DT & Acel lular Pertussis) (Daptacel) Vac <7 Yr 34924 Given 03/06/2004 Hib PRP-T Conjugate 4 Dos e Schedule 56779 Given 03/06/2004 Pneumococcal Vaccine/Pneu movax 23 05062 Given 03/06/2004 Hep B Ped/Adolescent Vac 85042 Given 01/12/2004 DTaP (DT & Acel lular Pertussis) (Daptacel) Vac <7 Yr 30730 Given 01/09/2004 Hep B Ped/Adolescent Vac 03045 Given 01/09/2004 Poliovirus Vaccine, (IPV) 38671 Given 01/09/2004 Hib PRP-T Conjugate 4 Dos e Schedule 45121 Given 2003 Hep B Ped/Adolescent Vac 49156 Refused 08/21/2023 Influenza Virus Vaccine, Quadrivalent, Split Virus, Im Use 6-35 72339 Refused 02/07/2023 Moderna Sars-Co v-2 (Cov-19) vacc,100 mcg/ 0.5 mL 12Y+EMR Doc Only 67986 Refused 07/02/2020 Influenza Virus Vaccine, Quadrivalent, Im Use 80338 Refused 09/19/2019 Influenza Virus Vaccine, Quadrivalent, Im Use 67438 Refused 08/17/2018 Influenza Virus Vaccine, Quadrivalent, Im Use 72907 Refused 01/27/2016 Influenza Virus Vaccine, Quadrivalent, Im [...] kg/m2 Body Mass Index Percentile 76 % [place] Body Weight 115 lb 08/21/2023 3:41pm BP Systolic 120 mmHg BP Diastolic 70 mmHg Body Temperature 98.5 F Heart Rate 78 /min Respiratory Rate 16 /min Weight 145.12 lb Weight 65.829 kg Weight Percentile 75th Height 63.75 inches 5'3.75" Height Percentile 41 % BMI (Body Mass Index) 25.1 kg/m2 Body Mass Index Percentile 79 % [place] Body Weight 115 lb Results Test Acquired Date Facility Test Result H/L Range N [place] General Health Panel 09/08/2023 [facility] [address] [place], [place] [id number] [phone] TSH 1.47 uIU/mL 0.50-6.00 Comp. Met 09/08/2023 [facility] [address] [place] [address] [phone] Glucose 89 mg/dL 70-110 BUN 9 mg/dL [...] GFR 115 ML/MIN/1.73SQM >60 CBC W/Diff 09/08/2023 [facility] [address] [place], [place] 0670[address] [phone] WBC 11.6 10^3/M3 High 3.1-9.2 RBC 4.16 10^6/M3 3.70-5.50 HGB 12.0 GR/DL 11.5-16.1 HCT 37.9 % 34.5-47.8 MCV 91.1 CUMICR 82.6-95.8 MCH 28.8 PICOGR 27.9-32.9 MCHC 31.6 % Low 32.6-35.4 RDW 17.3 % High 11.4-14.6 PLT 458 10^3/M3 High 140-350 MPV 7.6 CUMICR 7.0-10.6 %Neut 76.6 % High 40.0-75.0 %Lymph 16.2 % Low 17.0-45.0 %[place] 5.3 % 1.0-11.0 %Eos 0.5 % 0.0-6.0 %Baso 1.4 % 0.0-2.0 #Neut 8.9 10^3/M3 High 1.5-8.0 #Lymph 1.9 10^3/M3 0.8-3.2 #[place] 0.6 10^3/M3 0.0-0.8 #Eos 0.1 10^3/m3 0.0-0.4 #Baso 0.2 10^3/m3 0.0-0.2 Order 09/08/[address] [id number] [phone] [employer]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 [address] [place], [place] [address] [phone] BhCG 5 mIU/ML 0-5 1 CBC W/Diff 03/30/2023 [facility] [address] [place], [place] [address] [phone] WBC 9.8 10^3/M3 High 3.1-9 .2 RBC 3.91 10^6/M3 3.70-5.50 HGB 11.6 GR/DL 11.5-16.1 HCT 36.0 % 34.5-47.8 MCV 92.1 CUMICR 82.6-95.8 MCH 29.6 PICOGR 27.9-32.9 MCHC 32.1 % Low 32.6-35.4 RDW 14.8 % High 11.4-14.6 PLT 567 10^3/M3 High 140-350 MPV 6.9 CUMICR Low 7.0-10.6 %Neut 65.4 % 40.0-75.0 %Lymph 25.8 % 17.0-45.0 %[place] 7.1 % 1.0-11.0 %Eos 0.6 % 0.0-6.0 %Baso 1.1 % 0.0-2.0 #Neut 6.4 10^3/M3 1.5-8.0 #Lymph 2.5 10^3/M3 0.8-3.2 #[place] 0.7 10^3/M3 0.0-0.8 #Eos 0.1 10^3/m3 0.0-0.4 #Baso 0.1 10^3/m3 0.0-0.2 Iron Panel(Medcom) 03/30/2023 [facility]. [address] [place], [place] [address] [phone] Iron 39 g /dL 25-140 % Saturation 11 % Low 30-35 Tibc 03/30/2023 [facility] [address] [place], [place] [address] [phone] Tibc 370 g /dL 260-400 Transferrin 264 mg/dL 200-400 Laboratory test finding 03/30/2023 [facility] [address] [place], [place] [address] [phone] Ferritin 14.50 ng/mL 6.00-115.0 1 THE LEVELS OF HCG FO UND DURING [...] (mIU/mL) IN WEEKS (mIU/mL) 0.2-1 5-50 4-5 1000-67811 1-2 50-500 5-6 [id number] 2-3 100-5000 6-8 79373-766651 3-4 500-06487 8-12 [id number] Procedures Date Code Description Status 09/08/2023 69029 External ECG Rec>7D<15D Robel rding Completed 09/08/2023 18172 Venipuncture Routine Complet ed 08/21/2023 G9919 SCRN ND Pos ND Prov Of Rec C ompleted 03/30/2023 54334 Venipuncture Routine [facility] ed 03/30/2023 1111F D/C Medications Reconciled W/Current Medications In Outpt MR Completed 03/23/2023 1111F D/C Medications Reconciled W/Current Medications In Outpt MR Completed Medical Devices Description No Information Available Encounters Type Date Location Provider Dx Diagnosis Office Visit 09/08/2023 [place] R31.9 Hematuria, unspecified R30.0 Dysuria R55 Syncope and collapse Office Visit 08/21/2023 3[place]p [place] R11.0 Nausea N83.209 Unspecified ovarian cyst, unspecified side Office Visit 03/30/2023 3:30p [place] Mildred medina PA-C N10 Acute pyelonephritis O00.90 [...] 2:00 pm - Jese Molina MD at [place] * 11/27/2023 3:00 pm - Jese Molina MD at [place] 09/08/2023 - Jese Molina MD* R31.9 Blood [...]
--- OUTSIDE RECORDS SUMMARY | 2023-11-02 17:10 | External Medical Summary | Continuity of Care Document ---
Author Name JESE MOLINA MD Address [address], [place] [address] Phone [phone] [facility] Address [address], [facility] [place] [address] Phone [phone] Social History Type Date Description Comments Sex Unknown Tobacco Use Reviewed: 08/21/23 Never Smoked Cigarette s Cigarette Use 08/21/2023 Vaping Tobacco Use Reviewed: 08/21/23 Never Smoked Cigars Tobacco Use Reviewed: 08/21/23 Never Smoked A Pipe Smoking Status Reviewed: 08/21/23 Never Smoked A Pipe Smokeless Tobacco 08/21/2023 Never Used Smokeless To bacco Allergies and adverse reactions Description No Known Drug Allergies Medications Active Medications SIG Qnty Indications Ordering Provider Date Qpopcyvtok62yc Capsules DR 1 by mouth every day 30 mins before breakfast for 8 weeks 60caps R11.0 Jese Molina MD 08/21/2023 Hrskrieey904mq Tablets 1 tab by mouth up to three times a day as needed for pain with food Unknown 03/23/2023 Sulfamethoxazole/Trime thoprim WX163-878tt Tablets 1 by mouth twice a day Unknown 03/22/2023 Tylenol Extra Cyjqnaeh736vb Tablets 2 by mouth three times a day Unknown 03/22/2023 Metoclopramide HCL5mg Tablets take 1 tablet by mouth three times daily before meals X 10 days- given at [facility] Unknown History Medications Skdvqnxt985wp Capsules 1 by mouth twice a day 20caps Unknown 03/23/2023 - Sulfamethoxazole/Trimethopr im OI469-224bv Tablets 1 by mouth twice a day Unknown 03/17/2023 - Immunizations CPT Code Status Date Vaccine Lot # [id number] Given 07/20/2021 Bexsero [id number] 20833 Given 12/13/2019 Menactra/Menveo Meningococcal Conjugate Age 9 Months-55Yr [id number] 06368 Given 12/13/2019 Bexsero [id number] 13491 Given 08/19/2016 HPV Vaccine (Gardasil-9) [id number] 64498 Given 04/15/2016 HPV Vaccine (Gardasil-9) [id number] 32309 Given 01/27/2016 HPV Vaccine (Gardasil-9) [id number] 32387 Given 05/29/2015 Menactra/Menveo Meningococcal Conjugate Age 9 Months-55Yr [id number] 29849 Given 05/29/2015 Tdap (Tetanus, diphtheria & acel. pertussis) Adacel or Boostrix [id number] 72647 Given 01/11/2011 VFC PGsV-Ltf-JEZ [id number] 44936 Given 01/11/2011 VFC Influenza 94715 Given 01/11/2011 Influenza Vac, Split 3 Yr s And Up [id number] 08729 Given 12/17/2009 VFC Hep A Ped Inj [id number] [id number] 91024 Given 06/16/2009 VFC Hep A Ped Inj [id number] 0AA 86839 Given 06/16/2009 VFC Varivax [id number] 32461 Given 06/16/2009 VFC QPvK-Sbm-VYK [id number] 66685 Given 07/03/2007 MMR Vaccine 31779 Given 10/06/2005 Pneumococcal Vaccine/Pneu movax 23 00690 Given 09/06/2005 Varicella (Chicken Pox) V accine 66314 Given 09/06/2005 MMR Vaccine 15336 Given 02/04/2005 Hib PRP-T Conjugate 4 Dos e Schedule 83058 Given 02/04/2005 Hep B Ped/Adolescent Vac 94197 Given 02/04/2005 DTaP (DT & Acel lular Pertussis) (Daptacel) Vac <7 Yr 38599 Given 12/07/2004 Poliovirus Vaccine, (IPV) 42395 Given 05/06/2004 DTaP (DT & Acel lular Pertussis) (Daptacel) Vac <7 Yr 61996 Given 05/06/2004 Pneumococcal Vaccine/Pneu movax 23 42288 Given 03/06/2004 Poliovirus Vaccine, (IPV) 33228 Given 03/06/2004 DTaP (DT & Acel lular Pertussis) (Daptacel) Vac <7 Yr 78913 Given 03/06/2004 Hib PRP-T Conjugate 4 Dos e Schedule 35224 Given 03/06/2004 Pneumococcal Vaccine/Pneu movax 23 58684 Given 03/06/2004 Hep B Ped/Adolescent Vac 98262 Given 01/12/2004 DTaP (DT & Acel lular Pertussis) (Daptacel) Vac <7 Yr 10188 Given 01/09/2004 Hep B Ped/Adolescent Vac 08214 Given 01/09/2004 Poliovirus Vaccine, (IPV) 29515 Given 01/09/2004 Hib PRP-T Conjugate 4 Dos e Schedule 20859 Given 2003 Hep B Ped/Adolescent Vac 77728 Refused 08/21/2023 Influenza Virus Vaccine, Quadrivalent, Split Virus, Im Use 6-35 23335 Refused 02/07/2023 Moderna Sars-Co v-2 (Cov-19) vacc,100 mcg/ 0.5 mL 12Y+EMR Doc Only 42159 Refused 07/02/2020 Influenza Virus Vaccine, Quadrivalent, Im Use 46815 Refused 09/19/2019 Influenza Virus Vaccine, Quadrivalent, Im Use 29447 Refused 08/17/2018 Influenza Virus Vaccine, Quadrivalent, Im Use 21488 Refused 01/27/2016 Influenza Virus Vaccine, Quadrivalent, Im Use Vital Signs Date Vital Result Comment 08/21/2023 3:41pm BP Systolic 120 mmHg BP Diastolic 70 mmHg Body Temperature 98.5 F Heart Rate 78 /min Respiratory Rate 16 /min Weight 145.12 lb Weight 65.829 kg Weight Percentile 75th Height 63.75 inches 5'3.75" Height Percentile 41 % BMI (Body Mass Index) 25.1 kg/m2 Body Mass Index Percentile 79 % [place] Body Weight 115 lb 03/30/2023 3:45pm BP Systolic 120 mmHg BP Diastolic 60 mmHg Body Temperature 98.2 F Heart Rate 80 /min Respiratory Rate 18 /min Weight 142.50 lb Weight 64.638 kg Weight Percentile 74th BP Systolic Lying Down 122 mmHg BP Diastolic Lying Down 70 mmHg Pulse Lying down 60 /min BP Systolic Sitting 104 mmHg BP Diastolic Sitting 70 mmHg Pulse sitting 72 /min BP Systolic Standing 108 mmHg BP Diastolic Standing 72 mmHg Pulse standing 92 /min Results Test Acquired Date Facility Test Result H/L Range N ote Laboratory test finding 03/30/2023 [facility]. [address] [place] [address] [phone] BhCG 5 mIU/ML 0-5 1 CBC W/Diff 03/30/2023 [facility]. [address] [place] [address] [phone] WBC 9.8 10^3/M3 High 3.1-9.2 RBC 3.91 10^6/M3 3.70-5.50 HGB 11.6 GR/DL 11.5-16.1 HCT 36.0 % 34.5-47.8 MCV 92.1 CUMICR 82.6-95.8 MCH 29.6 PICOGR 27.9-32.9 MCHC 32.1 % Low 32.6-35.4 RDW 14.8 % High 11.4-14.6 PLT 567 10^3/M3 High 140-350 MPV 6.9 CUMICR Low 7.0-10.6 %Neut 65.4 % 40.0-75.0 %Lymph 25.8 % 17.0-45.0 %[place] 7.1 % 1.0-11.0 %Eos 0.6 % 0.0-6.0 %Baso 1.1 % 0.0-2.0 #Neut 6.4 10^3/M3 1.5-8.0 #Lymph 2.5 10^3/M3 0.8-3.2 #[place] 0.7 10^3/M3 0.0-0.8 #Eos 0.1 10^3/m3 0.0-0.4 #Baso 0.1 10^3/m3 0.0-0.2 Iron Panel(Medcom) 03/30/2023 [facility]. [address] [place], [place] [address] [phone] Iron 39 g /dL 25-140 % Saturation 11 % Low 30-35 Tibc 03/30/2023 [facility]. [address] [place] [address] [phone] Tibc 370 g /dL 260-400 Transferrin 264 mg/dL 200-400 Laboratory test finding 03/30/2023 [facility]. [address] [place] [address] [phone] Ferritin 14.50 ng/mL 6.00-115.0 1 THE LEVELS [...] (mIU/mL) IN WEEKS (mIU/mL) 0.2-1 5-50 4-5 1000-02696 1-2 50-500 5-6 07368-089898 2-3 100-5000 6-8 57104-951462 3-4 500-80450 8-12 92206-177415 Procedures Date Code Description Status 08/21/2023 G9919 SCRN ND Pos ND Prov Of Rec C ompleted 03/30/2023 89715 Venipuncture Routine Complet ed 03/30/2023 1111F D/C Medications Reconciled W/Current Medications In Outpt MR Completed 03/23/2023 1111F D/C Medications Reconciled W/Current Medications In Outpt MR Completed Medical Devices Description No Information Available Encounters Type Date Location Provider Dx Diagnosis Office Visit 08/21/2023 3:30p [place] Molina MD R11.0 Nausea N83.209 Unspecified ovarian cyst, unspecified side Office Visit 03/30/2023 3:30p Fitz medina PA-C N10 Acute pyelonephritis O00.90 Unspecified ectopic without intrauterine D64.9 Anemia, unspecified I95.1 Orthostatic hypotens ion Assessments Date Code Description Provider 08/21/2023 R11.0 Nausea without vomiting Aubrey Molina MD 08/21/2023 N83.209 Unspecified ovarian cyst, un specified side Jese Molina MD 03/30/2023 N10 Acute pyelonephritis Mildred Lemon PA-C 03/30/2023 O00.90 Unspecified ecto pic without intrauterine Mildred Lemon PA-C 03/30/2023 D64.9 Anemia, unspecified Mildred Lemon PA-C 03/30/2023 I95.1 Orthostatic hypotension Deb tyson Lemon PA-C Plan of Treatment Future Appointment(s):* 11/27/2023 3:00 pm - Jese Molina MD at [place] 08/21/2023 - Jese Molina MD* R11.0 Nausea without vomiting* New Medication:* Omeprazole 20 mg - 1 by mouth every day 30 mins before breakfast for 8 weeks * Comments:* Continue Reglan Nausea seems worse with food. Will add omeprazole for 8 weeks for heart burn symptoms and see if this helps with nausea also. * Follow up:* Follow up in 3 months * N83.209 Unspecified ovarian cyst, unspecified side* Comments:* Still having crampy lower abd pain likely due to [facility]ured [facility] will monitor and if pain worsens then will reimage and consider [facility] referral. Functional Status Description No Information Available Mental Status Description No Information Available Referrals Description No Information Available
--- OUTSIDE RECORDS SUMMARY | 2023-11-02 17:10 | External Medical Summary | Continuity of Care Document ---
Author Name JESE MOLINA MD Address [address], [place] [address] Phone [phone] [facility] Address [address], [place] [address] Phone [phone] Social History Type Date Description Comments Sex [...] Medications SIG Qnty Indications Ordering Provider Date Xvcvngwdaq19uc Capsules DR 1 by mouth every day 30 mins before breakfast for 8 weeks 60caps R11.0 Jese Molina MD 08/21/2023 Aolgqypam351mt Tablets 1 tab by mouth up to three times a day as needed for pain with food Unknown 03/23/2023 Tylenol Extra Ktjybdru281ux Tablets 2 by mouth three times a day Unknown 03/22/2023 Metoclopramide HCL5mg Tablets take 1 tablet by mouth three times daily before meals X 10 days- given at [facility] Unknown History Medications Ydfulzob409ro Capsules 1 by mouth twice a day 20caps Unknown 03/23/2023 - Sulfamethoxazole/Trimethopr im EB287-863iv Tablets 1 by mouth twice a day Unknown 03/22/2023 - 01/2023 Sulfamethoxazole/Trimethopr im OF175-443ze Tablets 1 by mouth twice a day Unknown 03/17/2023 - Immunizations CPT Code Status Date Vaccine Lot # [id number] Given 07/20/2021 Bexsero [id number] 92747 Given 12/13/2019 Menactra/Menveo Meningococcal Conjugate Age 9 Months-55Yr [id number] 37229 Given 12/13/2019 Bexsero [id number] 41516 Given 08/19/2016 HPV Vaccine (Gardasil-9) [id number] 02041 Given 04/15/2016 HPV Vaccine (Gardasil-9) [id number] 08392 Given 01/27/2016 HPV Vaccine (Gardasil-9) [id number] 18068 Given 05/29/2015 Menactra/Menveo Meningococcal Conjugate Age 9 Months-55Yr [id number] 64246 Given 05/29/2015 Tdap (Tetanus, diphtheria & acel. pertussis) Adacel or Boostrix [id number] 27106 Given 01/11/2011 VFC VYxF-Een-AYA [id number] 59116 Given 01/11/2011 VFC Influenza 32601 Given 01/11/2011 Influenza Vac, Split 3 Yr s And Up [id number] 46411 Given 12/17/2009 VFC Hep A Ped Inj [id number] 9AA 42480 Given 06/16/2009 VFC Hep A Ped Inj [id number] 0AA 44755 Given 06/16/2009 VFC Varivax [id number] 86850 Given 06/16/2009 VF AWiY-Rgv-AHM [id number] 82626 Given 07/03/2007 MMR Vaccine 23537 Given 10/06/2005 Pneumococcal Vaccine/Pneu movax 23 84602 Given 09/06/2005 Varicella (Chicken Pox) V accine 76098 Given 09/06/2005 MMR Vaccine 15216 Given 02/04/2005 Hib PRP-T Conjugate 4 Dos e Schedule 40805 Given 02/04/2005 Hep B Ped/Adolescent Vac 68571 Given 02/04/2005 DTaP (DT & Acel lular Pertussis) (Daptacel) Vac <7 Yr 93945 Given 12/07/2004 Poliovirus Vaccine, (IPV) 44750 Given 05/06/2004 DTaP (DT & Acel lular Pertussis) (Daptacel) Vac <7 Yr 54844 Given 05/06/2004 Pneumococcal Vaccine/Pneu movax 23 29745 Given 03/06/2004 Poliovirus Vaccine, (IPV) 27252 Given 03/06/2004 DTaP (DT & Acel lular Pertussis) (Daptacel) Vac <7 Yr 71344 Given 03/06/2004 Hib PRP-T Conjugate 4 Dos e Schedule 04587 Given 03/06/2004 Pneumococcal Vaccine/Pneu movax 23 88714 Given 03/06/2004 Hep B Ped/Adolescent Vac 73714 Given 01/12/2004 DTaP (DT & Acel lular Pertussis) (Daptacel) Vac <7 Yr 34412 Given 01/09/2004 Hep B Ped/Adolescent Vac 62775 Given 01/09/2004 Poliovirus Vaccine, (IPV) 19026 Given 01/09/2004 Hib PRP-T Conjugate 4 Dos e Schedule 63143 Given 2003 Hep B Ped/Adolescent Vac 05316 Refused 08/21/2023 Influenza Virus Vaccine, Quadrivalent, Split Virus, Im Use 6-35 93832 Refused 02/07/2023 Moderna Sars-Co v-2 (Cov-19) vacc,100 mcg/ 0.5 mL 12Y+EMR Doc Only 03139 Refused 07/02/2020 Influenza Virus Vaccine, Quadrivalent, Im Use 30832 Refused 09/19/2019 Influenza Virus Vaccine, Quadrivalent, Im Use 27779 Refused 08/17/2018 Influenza Virus Vaccine, Quadrivalent, Im Use 02146 Refused 01/27/2016 Influenza Virus Vaccine, Quadrivalent, Im [...] kg/m2 Body Mass Index Percentile 76 % [place] Body Weight 115 lb 08/21/2023 3:41pm BP Systolic 120 mmHg BP Diastolic 70 mmHg Body Temperature 98.5 F Heart Rate 78 /min Respiratory Rate 16 /min Weight 145.12 lb Weight 65.829 kg Weight Percentile 75th Height 63.75 inches 5'3.75" Height Percentile 41 % BMI (Body Mass Index) 25.1 kg/m2 Body Mass Index Percentile 79 % [place] Body Weight 115 lb Results Test Acquired Date Facility Test Result H/L Range N ote General Health Panel 09/08/2023 [facility]. 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 [address] [place] [address] [phone] BhCG 5 mIU/ML 0-5 1 CBC W/Diff 03/30/2023 [facility]. [address] [place] [address] [phone] WBC 9.8 10^3/M3 High 3.1-9.2 RBC 3.91 10^6/M3 3.70-5.50 HGB 11.6 GR/DL 11.5-16.1 HCT 36.0 % 34.5-47.8 MCV 92.1 CUMICR 82.6-95.8 MCH 29.6 PICOGR 27.9-32.9 MCHC 32.1 % Low 32.6-35.4 RDW 14.8 % High 11.4-14.6 PLT 567 10^3/M3 High 140-350 MPV 6.9 CUMICR Low 7.0-10.6 %Neut 65.4 % 40.0-75.0 %Lymph 25.8 % 17.0-45.0 %[place] 7.1 % 1.0-11.0 %Eos 0.6 % 0.0-6.0 %Baso 1.1 % 0.0-2.0 #Neut 6.4 10^3/M3 1.5-8.0 #Lymph 2.5 10^3/M3 0.8-3.2 #[place] 0.7 10^3/M3 0.0-0.8 #Eos 0.1 10^3/m3 0.0-0.4 #Baso 0.1 10^3/m3 0.0-0.2 Iron Panel(Medcom) 03/30/2023 [facility]. [address] [place], [place] 6235[address] [phone] Iron 39 g /dL 25-140 % Saturation 11 % Low 30-35 Tibc 03/30/2023 [facility]. [address] [place], [place] [address] [phone] Tibc 370 g /dL 260-400 Transferrin 264 mg/dL 200-400 Laboratory test finding 03/30/2023 [facility]. [address] [place], [place] [address] [phone] Ferritin 14.50 ng/mL 6.00-115.0 1 THE LEVELS [...] (mIU/mL) IN WEEKS (mIU/mL) 0.2-1 5-50 4-5 1000-42453 1-2 50-500 5-6 41636-840273 2-3 100-5000 6-8 67871-756873 3-4 500-69648 8-12 13324-459677 Procedures Date Code Description Status 09/08/2023 40235 External ECG Rec>7D<15D Robel rding Completed 09/08/2023 80145 Venipuncture Routine Complet ed 08/21/2023 G9919 SCRN ND Pos ND Prov Of Rec C ompleted 03/30/2023 13382 Venipuncture Routine Complet ed 03/30/2023 1111F D/C Medications Reconciled W/Current Medications In Outpt MR Completed 03/23/2023 1111F D/C Medications Reconciled W/Current Medications In Outpt MR Completed Medical Devices Description No Information Available Encounters Type Date Location Provider Dx Diagnosis Office Visit 08/21/2023 3:30p [place] Jese Molina MD R11.0 Nausea N83.209 Unspecified ovarian cyst, unspecified side Office Visit 03/30/2023 3:30p [place] Mildred medina PA-C N10 Acute pyelonephritis O00.90 [...] 2:00 pm - Jese Molina MD at [place] * 11/27/2023 3:00 pm - Jese Molina MD at [place] 09/08/2023 - Jese Molina MD* R31.9 Blood [...]
--- OUTSIDE RECORDS SUMMARY | 2023-11-02 17:10 | External Medical Summary | Continuity of Care Document ---
Author Name JESE MOLINA MD Address [address], [place] [address] Phone [phone] [facility] Address [address], [facility] [place] [place] [address] Phone [phone] Social History Type Date Description Comments Sex [...] Medications SIG Qnty Indications Ordering Provider Date [id number] Capsules DR 1 by mouth every day 30 mins before breakfast for 8 weeks 60caps R11.0 Jese Molina MD 08/21/2023 Dnaqlizgi243vm Tablets 1 tab by mouth up to three times a day as needed for pain with food Unknown 03/23/2023 Sulfamethoxazole/Trime thoprim JX269-472ml Tablets 1 by mouth twice a day Unknown 03/22/2023 Tylenol Extra Poejnykr950ae Tablets 2 by mouth three times a day Unknown 03/22/2023 Metoclopramide HCL5mg Tablets take 1 tablet by mouth three times daily before meals X 10 days- [place] [facility] [place] History Medications Fumsgzex183pf Capsules 1 by mouth twice a day 20caps Unknown 03/23/2023 - Sulfamethoxazole/Trimethopr im RF541-475sl Tablets 1 by mouth twice a day Unknown 03/17/2023 - Immunizations CPT Code Status Date Vaccine Lot # [id number] Given 07/20/2021 Bexsero [id number] 61023 Given 12/13/2019 Menactra/Menveo Meningococcal Conjugate Age 9 Months-55Yr [id number] 55969 Given 12/13/2019 Bexsero [id number] 16158 Given 08/19/2016 HPV Vaccine (Gardasil-9) [id number] 45225 Given 04/15/2016 HPV Vaccine (Gardasil-9) [id number] 96492 Given 01/27/2016 HPV Vaccine (Gardasil-9) [id number] 28029 Given 05/29/2015 Menactra/Menveo Meningococcal Conjugate Age 9 Months-55Yr [id number] 67354 Given 05/29/2015 Tdap (Tetanus, diphtheria & acel. pertussis) Adacel or Boostrix [id number] 42908 Given 01/11/2011 VFC [id number] 78178 Given 01/11/2011 VFC Influenza 35027 Given 01/11/2011 Influenza Vac, Split 3 Yr s And Up [id number] 75892 Given 12/17/2009 VFC Hep A Ped Inj [id number] 21174 Given 06/16/2009 VFC Hep A Ped Inj [id number] 79261 Given 06/16/2009 VFC Varivax [id number] 78315 Given 06/16/2009 VFC [id number] 51697 Given 07/03/2007 MMR Vaccine 14049 Given 10/06/2005 Pneumococcal Vaccine/Pneu movax 23 26588 Given 09/06/2005 Varicella (Chicken Pox) V accine 02848 Given 09/06/2005 MMR Vaccine 24124 Given 02/04/2005 Hib PRP-T Conjugate 4 Dos e Schedule 27544 Given 02/04/2005 Hep B Ped/Adolescent Vac 15940 Given 02/04/2005 DTaP (DT & Acel lular Pertussis) (Daptacel) Vac <7 Yr 93960 Given 12/07/2004 Poliovirus Vaccine, (IPV) 00740 Given 05/06/2004 DTaP (DT & Acel lular Pertussis) (Daptacel) Vac <7 Yr 56975 Given 05/06/2004 Pneumococcal Vaccine/Pneu movax 23 78652 Given 03/06/2004 Poliovirus Vaccine, (IPV) 66039 Given 03/06/2004 DTaP (DT & Acel lular Pertussis) (Daptacel) Vac <7 Yr 10593 Given 03/06/2004 Hib PRP-T Conjugate 4 Dos e Schedule 14635 Given 03/06/2004 Pneumococcal Vaccine/Pneu movax 23 33925 Given 03/06/2004 Hep B Ped/Adolescent Vac 74542 Given 01/12/2004 DTaP (DT & Acel lular Pertussis) (Daptacel) Vac <7 Yr 81878 Given 01/09/2004 Hep B Ped/Adolescent Vac 07570 Given 01/09/2004 Poliovirus Vaccine, (IPV) 70991 Given 01/09/2004 Hib PRP-T Conjugate 4 Dos e Schedule 27014 Given 2003 Hep B Ped/Adolescent Vac 47557 Refused 08/21/2023 Influenza Virus Vaccine, Quadrivalent, Split Virus, Im Use 6-35 24967 Refused 02/07/2023 Moderna Sars-Co v-2 (Cov-19) vacc,100 mcg/ 0.5 mL 12Y+EMR Doc Only 48629 Refused 07/02/2020 Influenza Virus Vaccine, Quadrivalent, Im Use 20968 Refused 09/19/2019 Influenza Virus Vaccine, Quadrivalent, Im Use 27801 Refused 08/17/2018 Influenza Virus Vaccine, Quadrivalent, Im Use 04024 Refused 01/27/2016 Influenza Virus Vaccine, Quadrivalent, Im [...] kg/m2 Body Mass Index Percentile 79 % [place] Body Weight 115 lb 03/30/2023 3:45pm BP [...] Range N ote Laboratory test finding 03/30/2023 [facility]. [address] [place] [address] [phone] BhCG 5 mIU/ML 0-5 1 CBC W/Diff 03/30/2023 [facility] [address] [place] [address] [phone] WBC 9.8 10^3/M3 High 3.1-9.2 RBC 3.91 10^6/M3 3.70-5.50 HGB 11.6 GR/DL 11.5-16.1 HCT 36.0 % 34.5-47.8 MCV 92.1 CUMICR 82.6-95.8 MCH 29.6 PICOGR 27.9-32.9 MCHC 32.1 % Low 32.6-35.4 RDW 14.8 % High 11.4-14.6 PLT 567 10^3/M3 High 140-350 MPV 6.9 CUMICR Low 7.0-10.6 %Neut 65.4 % 40.0-75.0 %Lymph 25.8 % 17.0-45.0 %[place] 7.1 % 1.0-11.0 %Eos 0.6 % 0.0-6.0 %Baso 1.1 % 0.0-2.0 #Neut 6.4 10^3/M3 1.5-8.0 #Lymph 2.5 10^3/M3 0.8-3.2 #[place] 0.7 10^3/M3 0.0-0.8 #Eos 0.1 10^3/m3 0.0-0.4 #Baso 0.1 10^3/m3 0.0-0.2 Iron Panel(Medcom) 03/30/2023 [facility]. [address] [place], [place] [id number] [phone] Iron 39 g /dL 25-140 % Saturation 11 % Low 30-35 Tibc 03/30/2023 [facility] [address] [place] [address] [phone] Tibc 370 g /dL 260-400 Transferrin 264 mg/dL 200-400 Laboratory test finding 03/30/2023 [facility]. [address] [place] [address] [phone] Ferritin 14.50 ng/mL 6.00-115.0 1 THE LEVELS [...] (mIU/mL) IN WEEKS (mIU/mL) 0.2-1 5-50 4-5 1000-21633 1-2 50-500 5-6 38516-617348 2-3 100-5000 6-8 77905-562986 3-4 500-96010 8-12 61050-354469 Procedures Date Code Description Status 08/21/2023 G9919 SCRN ND Pos ND Prov Of Rec C ompleted 03/30/2023 05323 Venipuncture Routine Complet ed 03/30/2023 1111F D/C [...] 3:00 pm - Jese Molina MD at [place] 08/21/2023 - Jese Molina MD* R11.0 Nausea [...] [facility] will monitor and if pain worsens then will reimage and consider PRIMARY CARE COORDINATOR referral. Functional Status Description No Information Available Mental Status Description No Information Available Referrals Description No Information Available
--- OUTSIDE RECORDS SUMMARY | 2023-11-02 17:10 | External Medical Summary | Continuity of Care Document ---
Author Name JESE MOLINA MD Address [address], [place] [address] Phone [phone] [facility] Address [address], [facility] [place] [address] Phone [phone] Social History Type Date Description Comments Sex [...] Medications SIG Qnty Indications Ordering Provider Date Ydauviawpp83la Capsules DR 1 by mouth every day 30 mins before breakfast for 8 weeks 60caps R11.0 Jese Molina MD 08/21/2023 Uaoeomrih702pc Tablets 1 tab by mouth up to three times a day as needed for pain with food Unknown 03/23/2023 Sulfamethoxazole/Trime thoprim LD616-862da Tablets 1 by mouth twice a day Unknown 03/22/2023 Tylenol Extra Zapwgoau134sc Tablets 2 by mouth three times a day Unknown 03/22/2023 Metoclopramide HCL5mg Tablets take 1 tablet by mouth three times daily before meals X 10 days- given [place] [facility] Unknown History Medications Ouczoffb901ed Capsules 1 by mouth twice a day 20caps Unknown 03/23/2023 - Sulfamethoxazole/Trimethopr im ST570-432ig Tablets 1 by mouth twice a day Unknown 03/17/2023 - Immunizations CPT Code Status Date Vaccine Lot # [id number] Given 07/20/2021 Bexsero [id number] 96060 Given 12/13/2019 Menactra/Menveo Meningococcal Conjugate Age 9 Months-55Yr [id number] 44480 Given 12/13/2019 Bexsero [id number] 68180 Given 08/19/2016 HPV Vaccine (Gardasil-9) [id number] 07731 Given 04/15/2016 HPV Vaccine (Gardasil-9) [id number] 39474 Given 01/27/2016 HPV Vaccine (Gardasil-9) [id number] 26848 Given 05/29/2015 Menactra/Menveo Meningococcal Conjugate Age 9 Months-55Yr [id number] 17057 Given 05/29/2015 Tdap (Tetanus, diphtheria & acel. pertussis) Adacel or Boostrix [id number] 72792 Given 01/11/2011 VFC [id number] 87778 Given 01/11/2011 VFC Influenza 12085 Given 01/11/2011 Influenza Vac, Split 3 Yr s And Up [id number] 71314 Given 12/17/2009 VFC Hep A Ped Inj [id number] 43173 Given 06/16/2009 VFC Hep A Ped Inj [id number] 0AA 32518 Given 06/16/2009 VFC Varivax [id number] 78911 Given 06/16/2009 VFC [id number] [id number] 85597 Given 07/03/2007 MMR Vaccine 70040 Given 10/06/2005 Pneumococcal Vaccine/Pneu movax 23 58504 Given 09/06/2005 Varicella (Chicken Pox) V accine 78449 Given 09/06/2005 MMR Vaccine 55508 Given 02/04/2005 Hib PRP-T Conjugate 4 Dos e Schedule 46988 Given 02/04/2005 Hep B Ped/Adolescent Vac 37072 Given 02/04/2005 DTaP (DT & Acel lular Pertussis) (Daptacel) Vac <7 Yr 34294 Given 12/07/2004 Poliovirus Vaccine, (IPV) 67331 Given 05/06/2004 DTaP (DT & Acel lular Pertussis) (Daptacel) Vac <7 Yr 36064 Given 05/06/2004 Pneumococcal Vaccine/Pneu movax 23 19390 Given 03/06/2004 Poliovirus Vaccine, (IPV) 88154 Given 03/06/2004 DTaP (DT & Acel lular Pertussis) (Daptacel) Vac <7 Yr 48587 Given 03/06/2004 Hib PRP-T Conjugate 4 Dos e Schedule 56130 Given 03/06/2004 Pneumococcal Vaccine/Pneu movax 23 76369 Given 03/06/2004 Hep B Ped/Adolescent Vac 50824 Given 01/12/2004 DTaP (DT & Acel lular Pertussis) (Daptacel) Vac <7 Yr 49445 Given 01/09/2004 Hep B Ped/Adolescent Vac 64378 Given 01/09/2004 Poliovirus Vaccine, (IPV) 78859 Given 01/09/2004 Hib PRP-T Conjugate 4 Dos e Schedule 64627 Given 2003 Hep B Ped/Adolescent Vac 21879 Refused 08/21/2023 Influenza Virus Vaccine, Quadrivalent, Split Virus, Im Use 6-35 67455 Refused 02/07/2023 Moderna Sars-Co v-2 (Cov-19) vacc,100 mcg/ 0.5 mL 12Y+EMR Doc Only 54187 Refused 07/02/2020 Influenza Virus Vaccine, Quadrivalent, Im Use 58423 Refused 09/19/2019 Influenza Virus Vaccine, Quadrivalent, Im Use 68629 Refused 08/17/2018 Influenza Virus Vaccine, Quadrivalent, Im Use 38891 Refused 01/27/2016 Influenza Virus Vaccine, Quadrivalent, Im [...] kg/m2 Body Mass Index Percentile 79 % [place] Body Weight 115 lb 03/30/2023 3:45pm BP [...] Range N ote Laboratory test finding 03/30/2023 [facility]. [address] [place] [address] [phone] BhCG 5 mIU/ML 0-5 1 CBC W/Diff 03/30/2023 [facility]. [address] [place] [address] [phone] WBC 9.8 10^3/M3 High 3.1-9.2 RBC 3.91 10^6/M3 3.70-5.50 HGB 11.6 GR/DL 11.5-16.1 HCT 36.0 % 34.5-47.8 MCV 92.1 CUMICR 82.6-95.8 MCH 29.6 PICOGR 27.9-32.9 MCHC 32.1 % Low 32.6-35.4 RDW 14.8 % High 11.4-14.6 PLT 567 10^3/M3 High 140-350 MPV 6.9 CUMICR Low 7.0-10.6 %Neut 65.4 % 40.0-75.0 %Lymph 25.8 % 17.0-45.0 %[place] 7.1 % 1.0-11.0 %Eos 0.6 % 0.0-6.0 %Baso 1.1 % 0.0-2.0 #Neut 6.4 10^3/M3 1.5-8.0 #Lymph 2.5 10^3/M3 0.8-3.2 #[place] 0.7 10^3/M3 0.0-0.8 #Eos 0.1 10^3/m3 0.0-0.4 #Baso 0.1 10^3/m3 0.0-0.2 Iron Panel(Medcom) 03/30/2023 [facility]. 1 [place], [place] [id number] [phone] Iron 39 g /dL 25-140 % Saturation 11 % Low 30-35 Tibc 03/30/2023 [facility]. [address] [place] [address] [phone] Tibc 370 g /dL 260-400 Transferrin 264 mg/dL 200-400 Laboratory test finding 03/30/2023 [facility]. [address] [place] [address] [phone] Ferritin 14.50 ng/mL 6.00-115.0 1 THE LEVELS [...] (mIU/mL) IN WEEKS (mIU/mL) 0.2-1 5-50 4-5 1000-79067 1-2 50-500 5-6 90395-799633 2-3 100-5000 6-8 36108-518471 3-4 500-33417 8-12 84596-557003 Procedures Date Code Description Status 08/21/2023 G9919 SCRN ND Pos ND Prov Of Rec C ompleted 03/30/2023 53875 Venipuncture Routine Complet ed 03/30/2023 1111F D/C [...] pm - Jese Molina MD at [place] 08/21/2023 - Jese Molina MD* R11.0 Nausea [...] [facility] will monitor and if pain worsens then will reimage and consider AMPHIBIAN CREWMEMBER referral. Functional Status Description No Information Available Mental Status Description No Information Available Referrals Description No Information Available
--- OUTSIDE RECORDS SUMMARY | 2023-11-02 17:10 | External Medical Summary ---
Author Name Unknown Address Unknown Organization [facility]:[address] [place] [address] Laboratory Report Ordering Provider Test Date Status null,LUIS ARMANDO 09/08/2023 15:48 Final Observation Date Value Abnormality Reference (Units ) Status Glucose 09/09/2023 14:24 89 70-110 (MG/DL) Final BUN 09/09/2023 14:24 9 6-25 (MG/DL) Final Creatinine 09/09/2023 14:24 0.7 0.5-1.2 (MG/DL) Final Sodium 09/09/2023 14:24 142 135-145 (MEQ/L) Final Potassium 09/09/2023 14:24 4.7 3.5-5.0 (MEQ/L) Final Cl 09/09/2023 14:24 108 Above high normal 95-107 (MEQ/L) Final CO2 09/09/2023 14:24 26 24-31 (MEQ/L) Final Alk Phos 09/09/2023 14:24 56 43-122 (IU/L) Final ALT (Alanine aminotransferase) 09/09/2023 14:24 7 Below low normal 10-40 (IU/L) Final AST (Aspartate aminotransferase) 09/09/2023 14:24 11 3-42 (IU/L) Final Bilirubin, Total 09/09/2023 14:24 0.5 0.1-1.3 (MG/DL) Final Calcium 09/09/2023 14:24 9.5 8.5-10.6 (MG/DL) Final Protein 09/09/2023 14:24 7.1 5.8-8.0 (G/DL) Final Albumin 09/09/2023 14:24 4.6 3.0-5.2 (G/DL) Final GLOBULIN 09/09/2023 14:24 2.5 2.0-3.4 (G/DL) Final GFR (estimated) 09/09/2023 14:24 115 >60 (ML/MIN/1.73 SQM) Final Performing Location [facility] [address] [place] [address]
--- OUTSIDE RECORDS SUMMARY | 2023-11-02 17:10 | External Medical Summary ---
Author Name Unknown Address Unknown Organization [facility] [address] [place] [id number] Laboratory Report Ordering Provider Test Date Status null,LUIS ARMANDO 09/08/2023 15:48 Final Observation Date Value Abnormality Reference (Units ) Status TSH 09/09/2023 14:22 1.47 0.50-6.00 (uI U/mL) Final Performing Location [facility] [address] [place] [id number]
[2023-11-02] MEDS: metroNIDAZOLE 500 MG/100 ML BAG IV SCH (21:06)
[2023-11-02] MEDS: DOXYCYCLINE HYCLATE 100 MG CAP PO SCH (22:06)
[2023-11-03 06:28] LABS: Basophils # (auto) 0.06 K/uL (0.00-0.20); Basophils % (auto) 0.4 %; Eosinophils # (auto) 0.16 K/uL (0.00-0.50); Eosinophils % (auto) 1.2 %; Hematocrit (blood only) 30.2 % (37.0-47.0); Hemoglobin 9.7 g/dl (12.0-16.0); Immature Granulocytes # (auto) 0.04 K/uL (0.01-0.20); Immature Granulocytes % (auto) 0.3 %; Lymphocytes # (auto) 2.98 K/uL (1.20-3.40); Lymphocytes % (auto) 22.3 %; Mean Corpuscular Hemoglobin 28.4 pg (25.0-34.0); Mean Corpuscular Hgb Conc 32.1 g/dL (32.0-36.0); Mean Corpuscular Volume 88.3 fL (80.0-100.0); Mean Platelet Volume 9.4 fL (9.4-12.4); Monocytes # (auto) 1.46 K/uL (0.11-0.59); Monocytes % (auto) 10.9 %; Neutrophils # (auto) 8.67 K/uL (1.40-6.50); Neutrophils % (auto) 64.9 %; Platelet Count 287 K/uL (130-400); RDW Coefficient of Variation 14.5 % (11.5-14.5); RDW Standard Deviation 46.5 fL (36.4-46.3); Red Blood Count 3.42 M/uL (4.20-5.40); White Blood Count 13.37 K/ul (4.8-10.8)
[2023-11-03] MEDS: LACTATED RINGER'S 1,000 ML IV SCH ×2 (07:11→14:31)
[2023-11-03] MEDS ORDERED: DULoxetine HCL 60 MG CAP PO SCH (09:00)
[2023-11-03] MEDS: metroNIDAZOLE 500 MG/100 ML BAG IV SCH (09:45)
[2023-11-03] MEDS: DOXYCYCLINE HYCLATE 100 MG CAP PO SCH (09:49)
--- NOTE | 2023-11-03 11:10 | Gynecologic Progress Note ---
Date of Service November 03, 2023 Assessment & Plan (1) Left pyosalpinx: Plan: Day #2 Pt doing well +CHL on culx discussed result with pt Plan D/c home with Doxy x7 days rx given to her partner pt will do HIV testing with out. pt Admission and Anticipated Discharge Date Admission Date: November 02, 2023 Results & Data Vital Signs (Past 12 Hours) Vital Signs Temp Pulse Resp BP Pulse Ox O2 Del Method 11/03/23 03:05 36.8 C 71 18 98/63 L 98 Room Air
--- NOTE | 2023-11-03 11:14 | Discharge Summary ---
Date of Service November 03, 2023 Admission HPI Per Admitting Provider [address] [place] P0010 presents to ER early this AM with left sided abdominal pain. 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 Pelvic ultrasound verified left sided hydrosalpinx.
[2023-11-03] MEDS ORDERED: FAMOTIDINE 10 MG TABLET PO ONE (15:01)
[2023-11-03] MEDS: cefTRIAXone SODIUM 1,000 MG in DEXTROSE 5 % MINI-B 50 ML IV SCH (15:40)
== END 2023-11-03 15:15 | disposition home or self-care (01) | DRG 759 ==
LOC: ED 05:07 → 4E1 09:55 → INTOOBSV 09:55 → 4E1 12:15